=== PATIENT | female | born 1965 | race Caucasian/White ===

== ENCOUNTER → 2016-11-25 | Outpatient (CLI) | payer OTHER ==
[~2016-11-25] MED LIST: ALBINS/ INH; AMOX875T PO; AMOX875T3 PO; ATV/1 PO; AZITTAB PO; BECL0.3A INH; BUDE1SUS INH; BUPRTAB51 PO; DILT120T8 PO; EFF75 PO; ERGO500037 PO; ESCI1TAB10 PO; FEXO1TAB49 PO; GFNSR600 PO; GUAI1TAB55 PO; IPRA1AER2 INH; IPRASOL4 INH; LEVO112T2 PO; MAGN250T3 PO; METH1TAB81 PO; OMAL150S SQ; PLMINS NEB; QVRINH80 INH; RABE20TA5 PO; SALM50AE2 INH; SRVDIN60 INH; TRIA37.5 PO; VENL150C56 PO; ZTHM250 PO
--- NOTE | 2016-11-25 14:55 | DIAGNOSTIC IMAGING REPORT ---
MRI of the right knee no contrast CLINICAL HISTORY: Right knee pain x3 weeks COMPARISON STUDY: No previous studies for comparison. FINDINGS: Imaging was performed in the sagittal, axial, and coronal planes. The quadriceps and patellar tendons appear intact. The anterior posterior cruciate ligaments appear intact. There are no areas of marrow edema to indicate occult fracture or bone bruise. The medial and lateral collateral ligaments appear intact. The patellar retinacular structures appear intact. There are degenerative signal changes present within the medial meniscus. No discrete tears are visualized. IMPRESSION: No evidence of internal derangement. Electronically signed by: Jg Potter M.D. 11/25/2016 2:53 PM Dictated Date/Time: 11/25/2016 2:50 PM
== END | disposition home or self-care (01) ==
LOC: C.MRI 14:06
PROVIDERS: ATTEND Family Medicine
DX: M25.561 Pain in right knee (principal)

== ENCOUNTER 2017-01-20 14:39 | Emergency (ER) | payer OTHER ==
[~2017-01-20] VITALS: Ht 162.6 cm; Wt 98.6 kg
[~2017-01-20 14:39] MED LIST changes: -AMOX875T PO; -AZITTAB PO; -BUDE1SUS INH; -EFF75 PO; -GFNSR600 PO; -GUAI1TAB55 PO; -IPRASOL4 INH; -METH1TAB81 PO; -PLMINS NEB; -QVRINH80 INH; -SRVDIN60 INH; -VENL150C56 PO; -ZTHM250 PO
[2017-01-20 14:45] VITALS: TEMP 36.9; Ht 162.6 cm; Wt 98.6 kg
[2017-01-20] MEDS ORDERED: ALBUTEROL 0.083% NEBU SOLN 3 ML VIAL INH STA (15:16)
[2017-01-20] MEDS ORDERED: KETOROLAC TROMETHAMINE 30 MG/ML VIAL IV STA (15:16)
--- NOTE | 2017-01-20 15:19 | EMERGENCY ROOM VISIT NOTE ---
History Report prepared by Sandi: Alanna Hernandez Under the Supervision of: Dr. Jose Camacho M.D. First contact with patient: 15:06 Chief Complaint: CARDIAC ASSESSMENT Stated Complaint: CHEST DISCOMFORT Nursing Triage Summary: pt reports awoke from sleep this AM with discomfort in mid chest with intermittent radiation to back , pt reports cough with no mucus production X 2 days, denies SALEEM , or [place] History of Present Illness The patient is a 51 year old female who presents to the Emergency Room with complaints of intermittent chest discomfort that started around 0440 this morning. The patient woke up with a sharp chest pain. She rates her pain an 8/ 10 at that time. After about 30 seconds, this turned into a dull pain that lasted for about 5 hours. This pain worsened with hitting bumps in the road on her way to work this morning. The sharp pain came back around 1230 this afternoon. It again turned into a dull pain. She rates her pain a 3-4/10 at this time. The pain does not worsen with deep breaths. Associated symptoms include a persistent cough for the past 2 days. The patient denies headache, nausea, vomiting, abdominal pain, fevers, shortness of breath, and pain or swelling in the legs. Past medical history is negative for blood clots. Source of History: patient, family Onset: 0440 this morning Position: chest Symptom Intensity: 8/10 this morning, 3-4/10 at this time Timing: intermittent Modifying Factors (Worsening): other (Hitting bumps in the road ) Associated Symptoms: + cough, No SOB, No abdominal pain, No fevers, No headache, No nausea, No vomiting Review of Systems See HPI for pertinent positives & negatives. A total of 10 systems reviewed and were otherwise negative. Past Medical & Surgical Medical Problems: (1) Asthma (2) GERD (gastroesophageal reflux disease) (3) Hypothyroid (4) Pneumonia (5) Pneumonia Surgical Problems: (1) History of cholecystectomy Old medical records were reviewed. Nurse's notes were reviewed and I agree with. Family History FH: heart disease Social History Smoking Status: Never Smoker Drug Use: none Marital Status: Housing Status: lives with family Occupation Status: employed Current/Historical Medications Scheduled Beclomethasone Dip (Qvar), 2 PUFFS INH BID Bupropion (Wellbutrin-Xl), 300 MG PO QAM Diltiazem Hcl (Cardizem), 1 TAB PO QAM Ergocalciferol (Vitamin D 47131 Unit), 50,000 UNIT PO WK Fexofenadine Hcl (Beti Allergy), 1 TAB PO QAM Levothyroxine Sodium (Synthroid), 112 MCG PO QAM Magnesium (Magnesium 250 mg), 1 TAB PO QAM Omalizumab (Xolair), 1.8 ML SC [id number] Rabeprazole Sodium (Aciphex), 20 MG PO BID Triamterene/Hctz (Dyazide 37.5MG/25MG), 0.5 TAB PO QAM Venlafaxine Hcl (Effexor), 75 MG PO DAILY Scheduled PRN Amoxicillin (Amoxil), 875 MG PO BID PRN for ASTHMA RESCUE KIT Ipratropium-Albuterol (Combivent Respimat), 1 PUFFS INH Q4H PRN for SOB/Wheezing Lorazepam (Ativan), 1 MG PO TID PRN for Anxiety Miscellaneous Medications Salmeterol Xinafoate (Serevent Diskus) Allergies Coded Allergies: Quinolones (Unverified Allergy, Mild, RASH, 01/20/17) Buspirone (Verified Allergy, Unknown, ASTHMA, 01/20/17) Fluticasone (Verified Allergy, Unknown, FUNGAL INFECTION, 01/20/17) Prednisone (Verified Adverse Reaction, Unknown, SEVERE DEPRESSION, 01/20/17) Physical Exam Vital Signs Date Time Temp Pulse Resp B/P Pulse Ox O2 Delivery O2 Flow Rate FiO2 01/20/17 16:29 87 18 130/89 98 Room Air 01/20/17 14:45 36.9 99 20 151/97 99 Room Air Physical Exam General: Non ill appearing middle aged female in no acute distress. HEENT: Normal cephalic atraumatic. Pupils are equal round and reactive to light. Extraocular movements are intact. Oropharynx is pink with moist mucous membranes. No swelling of the mouth lips or tongue. Neck: Supple with a midline trachea. No meningeal signs or stiffness, no JVD or bruits. No Stridor. Chest: Mild tenderness to palpation of right sternal border. Clear to auscultation bilaterally. No wheezes or rhonchi. No increased work of breathing. Heart: regular rate and rhythm. Abdomen: Soft nontender, nondistended without rebound guarding or rigidity. Extremities: No cyanosis clubbing or edema. No calf tenderness or assymetry Spine/Back. Non tender to palpation. No CVA tenderness Skin: Good turgor without rashes. Neurologic exam: Cranial nerves two through 12 are intact. Motor and sensation are intact and symmetrical throughout. Medical Decision & Procedures ER Provider Diagnostic Interpretation: X-ray results as stated below per interpretation by me and the radiologist: SINGLE VIEW CHEST CLINICAL HISTORY: Atypical chest pain. FINDINGS: An AP, portable, upright chest radiograph is compared to study dated 04/06/2015. The cardiomediastinal silhouette is unremarkable. The lungs and pleural spaces are clear. No pneumothorax is seen. The skeletal structures appear osteopenic. The bony thorax is grossly intact. IMPRESSION: No acute cardiopulmonary abnormality. Electronically signed by: Boy Roldan M.D. 01/20/2017 4:06 PM Dictated Date/Time: 01/20/2017 4:05 PM Laboratory Results 01/20/17 15:15 Red Blood Count 4.44, Mean Corpuscular Volume 91.4, Mean Corpuscular Hemoglobin 31.5, Mean Corpuscular Hemoglobin Concent 34.5, Mean Platelet Volume 11.3, Neutrophils (%) (Auto) 71.1, Lymphocytes (%) (Auto) 16.6, Monocytes (%) (Auto) 8.0, Eosinophils (%) (Auto) 3.6, Basophils (%) (Auto) 0.5, Neutrophils # (Auto) 4.51, Lymphocytes # (Auto) 1.05, Monocytes # (Auto) 0.51, Eosinophils # (Auto) 0.23, Basophils # (Auto) 0.03 01/20/17 15:15 Test 01/20/17 15:15 01/20/17 15:24 White Blood Count 6.34 K/uL (4.8-10.8) Red Blood Count 4.44 M/uL (4.2-5.4) Hemoglobin 14.0 g/dL (12.0-16.0) Hematocrit 40.6 % (37-47) Mean Corpuscular Volume 91.4 fL (80-100) Mean Corpuscular Hemoglobin 31.5 pg (25-34) Mean Corpuscular Hemoglobin Concent 34.5 g/dl (32-36) Platelet Count 224 K/uL (130-400) Mean Platelet Volume 11.3 fL (7.4-10.4) Neutrophils (%) (Auto) 71.1 % Lymphocytes (%) (Auto) 16.6 % Monocytes (%) (Auto) 8.0 % Eosinophils (%) (Auto) 3.6 % Basophils (%) (Auto) 0.5 % Neutrophils # (Auto) 4.51 K/uL (1.4-6.5) Lymphocytes # (Auto) 1.05 K/uL (1.2-3.4) Monocytes # (Auto) 0.51 K/uL (0.11-0.59) Eosinophils # (Auto) 0.23 K/uL (0-0.5) Basophils # (Auto) 0.03 K/uL (0-0.2) RDW Standard Deviation 44.9 fL (36.4-46.3) RDW Coefficient of Variation 13.6 % (11.5-14.5) Immature Granulocyte % (Auto) 0.2 % Immature Granulocyte # (Auto) 0.01 K/uL (0.00-0.02) Anion Gap 10.0 mmol/L (3-11) Est Creatinine Clear Calc Drug Dose 76.5 ml/min Estimated GFR () 77.3 Estimated GFR (Non- 66.7 BUN/Creatinine Ratio 11.4 (10-20) Calcium Level 8.8 mg/dl (8.5-10.1) Total Bilirubin 0.3 mg/dl (0.2-1) Direct Bilirubin < 0.1 mg/dl (0-0.2) Aspartate Amino Transf (AST/SGOT) 55 U/L (15-37) Alanine Aminotransferase (ALT/SGPT) 71 U/L (12-78) Alkaline Phosphatase 88 U/L (45-117) Total Creatine Kinase 62 U/L (26-192) Creatine Kinase MB 0.7 ng/ml (0.5-3.6) Creatine Kinase MB Ratio 1.1 (0-3.0) Total Protein 7.8 gm/dl (6.4-8.2) Albumin 4.3 gm/dl (3.4-5.0) Lipase 129 U/L (73-393) Bedside D-Dimer 402 ng/mlFEU (0-450) Bedside Troponin I 0.000 ng/ml (0-0.045) Laboratory studies as stated above per my review. Medications Administered Medications (Trade) Dose Ordered Sig/Alba Route Start Time Stop Time Status Last Admin Dose Admin Ketorolac Tromethamine (Toradol Inj) 30 mg NOW STAT IV 01/20/17 15:16 01/20/17 15:18 DC 01/20/17 15:36 30 MG Albuterol Sulfate (Ventolin 0.083% 2.5MG/3ML Neb) 2.5 mg NOW STAT INH 01/20/17 15:16 01/20/17 15:18 DC 01/20/17 15:36 2.5 MG Lorazepam (Ativan Tab) 1 mg NOW STAT SL 01/20/17 16:15 01/20/17 16:16 DC 01/20/17 16:26 1 MG ECG Indication: chest pain Rate (beats per minute): 92 Rhythm: normal sinus Findings: no acute ischemic change, no ectopy Comparison ECG Date: April 06, 2015 Change: no significant change ED Course 1507: Past medical records reviewed. The patient was evaluated in room B7, and a complete history and physical examination were performed. 1516: Ordered Albuterol Sulfate 2.5 mg INH, Toradol Injection 30 mg IV, Ativan Tablet 1 mg SL. 1625: Upon reevaluation, the patient is feeling better. I discussed the results and treatment plan with the patient and her daughter. They verbalized agreement of the treatment plan. The patient was discharged home. Medical Decision Differentials include, but are not limited to; Acute coronary syndrome, arrhythmia, musculoskeletal, pulmonary embolism, pneumothorax. This patient comes in as described above. She complains of chest pain. It is vague and atypical is reproducible. She also has history asthma and has had some anxiety as well. She was given albuterol neb and felt better. She also requested Ativan which she typically takes and was feeling comfortable with this. EKG does not suggest acute ischemic changes or ectopy. She has nothing to suggest congestive heart failure, pneumonia ,or pneumothorax. She has nothing to suggest infection or sepsis. She should continue her inhaler. She' s not done well with steroids in the past so I will not start her on this. She continues her Ativan. I think this may be a combination of asthma anxiety and musculoskeletal and at this point is nothing to suggest acute cardiac event. She strongly desires to go home her biomarkers are negative despite having hours of pain in the pain starting multiple hours ago. I told her father regular doctor return ER if: increasing pain, worsening of symptoms, fever or chills, any new problems concerns. She is happy with plan and discharged to home. Impression Primary Impression: Precordial chest pain Additional Impressions: Costochondritis Asthma exacerbation Anxiety Scribe Attestation The scribe's documentation has been prepared under my direction and personally reviewed by me in its entirety. I confirm that the note above accurately reflects all work, treatment, procedures, and medical decision making performed by me. Departure Information Dispostion Home / Self-Care Referrals Anuradha Pierre MD (PCP) Forms IMPORTANT VISIT INFORMATION Patient Instructions [facility] Additional Instructions Rest. Drink plenty of fluids. Return if: Recurrence of symptoms, worsening of symptoms, shortness of breath, any new problems or concerns. Follow-up with your doctor Monday for recheck. Use your albuterol inhaler as directed May use [id number] ibuprofen every 6 hours if needed for aches or pains Problem Qualifiers
[2017-01-20 15:33] LABS: BASO % 0.5 %; BASO ABS # 0.03 K/uL (0-0.2); COMPLETE YES; EOS % 3.6 %; HEMATOCRIT 40.6 % (37-47); IG% 0.2 %; LYMPH % 16.6 %; LYMPH ABS # 1.05 K/uL (1.2-3.4); MEAN CELL VOLUME 91.4 fL (80-100); MEAN CORPUSCULAR HEMOGLOBIN 31.5 pg (25-34); MEAN CORPUSCULAR HGB CONC 34.5 g/dl (32-36); MEAN PLATELET VOLUME 11.3 fL (7.4-10.4); NEUT % 71.1 %; PLATELET COUNT 224 K/uL (130-400); RED BLOOD COUNT 4.44 M/uL (4.2-5.4); WHITE BLOOD COUNT 6.34 K/uL (4.8-10.8)
[2017-01-20] MEDS ORDERED: EFF75 PO (15:43)
[2017-01-20] MEDS ORDERED: QVRINH80 INH (15:43)
[2017-01-20] MEDS ORDERED: SRVDIN60 INH (15:43)
[2017-01-20 15:58] LABS: ALT/SGPT 71 U/L (12-78); AST/SGOT 55 U/L (15-37); BLOOD UREA NITROGEN 11 mg/dl (7-18); BUN/CREATININE RATIO 11.4 (10-20); CALCIUM 8.8 mg/dl (8.5-10.1); CARBON DIOXIDE 29 mmol/L (21-32); CHLORIDE 101 mmol/L (98-107); CREATININE 0.97 mg/dl (0.60-1.20); GLUCOSE 125 mg/dl (70-99); POTASSIUM 3.4 mmol/L (3.5-5.1); SODIUM 140 mmol/L (136-145)
[2017-01-20 16:03] LABS: ALKALINE PHOSPHATASE 88 U/L (45-117); CKMB/CK RATIO 1.1 (0-3.0)
--- NOTE | 2017-01-20 16:07 | DIAGNOSTIC IMAGING REPORT ---
SINGLE VIEW CHEST CLINICAL HISTORY: Atypical chest pain. FINDINGS: An AP, portable, upright chest radiograph is compared to study dated 04/06/2015. The cardiomediastinal silhouette is unremarkable. The lungs and pleural spaces are clear. No pneumothorax is seen. The skeletal structures appear osteopenic. The bony thorax is grossly intact. IMPRESSION: No acute cardiopulmonary abnormality. Electronically signed by: Boy Roldan M.D. 01/20/2017 4:06 PM Dictated Date/Time: 01/20/2017 4:05 PM
[2017-01-20] MEDS ORDERED: LORAZEPAM 1 MG TAB SL STA (16:15)
[2017-01-20 16:29] VITALS: BP 130/89; PULSE 87; O2SAT 98
[2017-01-30] MEDS ORDERED: ZTHM250 PO (09:59)
[2017-01-30] MEDS ORDERED: AMOX875T PO (09:59)
[2017-01-30] MEDS ORDERED: QVRINH80 INH (09:59)
[2017-01-30] MEDS ORDERED: GFNSR600 PO (09:59)
[2017-01-30] MEDS ORDERED: PLMINS NEB (09:59)
== END 2017-01-20 16:48 | disposition home or self-care (01) ==
LOC: C.EDB 14:40
DX: M94.0 Chondrocostal junction syndrome [Tietze] (principal); J44.1 Chronic obstructive pulmonary disease with (acute) exacerbation; F41.9 Anxiety disorder, unspecified; K21.9 Gastro-esophageal reflux disease without esophagitis; E03.9 Hypothyroidism, unspecified; Z87.01 Personal history of pneumonia (recurrent); Z90.49 Acquired absence of other specified parts of digestive tract; Z79.899 Other long term (current) drug therapy

== ENCOUNTER 2017-01-27 12:43 | Observation (INO) | payer OTHER ==
[~2017-01-27] VITALS: Ht 162.6 cm; Wt 96.9 kg
[~2017-01-27 12:43] MED LIST changes: -ALBINS/ INH; -BECL0.3A INH; +EFF75 PO; -ESCI1TAB10 PO; +QVRINH80 INH; -SALM50AE2 INH; +SRVDIN60 INH
[2017-01-27] MEDS ORDERED: METH1TAB81 PO (12:56)
[2017-01-27] MEDS ORDERED: IPRASOL4 INH (12:57)
[2017-01-27] MEDS ORDERED: CEFTRIAXONE SOD INJ 1 GM ADDVIAL IV STA (13:09)
[2017-01-27] MEDS ORDERED: AZITHROMYCIN IV 500 MG in DEXTROSE 5% 250ML 250 ML IV STA (13:09)
[2017-01-27] MEDS ORDERED: SODIUM CHLORIDE 0.9% 1000ML 1,000 ML IV STA (13:09)
[2017-01-27] MEDS ORDERED: METHYLPREDNISOLONE 125 MG VIAL IV STA (13:09)
[2017-01-27] MEDS ORDERED: MAGNESIUM SULFATE 1GM / D5W 1 GM BAG IV STA (13:09)
--- NOTE | 2017-01-27 13:10 | EMERGENCY ROOM VISIT NOTE ---
History Report prepared by Juanibgeoff: Cindy Salgado Under the Supervision of: Dr. Raz Lazaro M.D. First contact with patient: 13:00 Chief Complaint: RESPIRATORY PROBLEMS Stated Complaint: ASTHMA, URI, FATIGUE Nursing Triage Summary: Pt states seen here last week for difficulty breathing, cough, chest pain/congestion. Hx of asthma. Sx worsening now. Pt taking Augmentin, Medrol Dose Pack (2nd course). Pt states used neb without relief. History of Present Illness The patient is a 51 year old female who presents to the Emergency Room with complaints of worsening shortness of breath that began over a week ago. She also complains of a productive cough with green/yellow sputum and chest congestion. She has a history of asthma and notes that her current symptoms feel like her previous asthma flare ups, although slightly worse. She has been on 2 Medrol dose packs since 6 days ago when she was seen here in the ED and had a Solu-Medrol injection at her PCP's office 2 days ago. Despite the medication, she does not feel that her symptoms are improving significantly. Yesterday, she started a course of Augmentin. She used a breathing treatment about an hour ago. Denies chest pain, abdominal pain, chance of , or other complaints. She has been hospitalized in the past for asthma flare ups when she was younger. Source of History: patient Onset: over a week ago Position: other (global) Quality: other (shortness of breath) Timing: worsening Associated Symptoms: + cough (productive), No abdominal pain, No chest pain Note: Other symptoms: chest congestion Review of Systems See HPI for pertinent positives & negatives. A total of 10 systems reviewed and were otherwise negative. Past Medical & Surgical Medical Problems: (1) Asthma (2) GERD (gastroesophageal reflux disease) (3) Hypothyroid (4) Pneumonia (5) Pneumonia (6) Status asthmaticus Surgical Problems: (1) History of cholecystectomy Family History FH: heart disease Social History Smoking Status: Never Smoker Drug Use: none Marital Status: Housing Status: lives with family Occupation Status: employed Current/Historical Medications Scheduled Beclomethasone Dip (Qvar), 2 PUFFS INH BID Bupropion (Wellbutrin-Xl), 300 MG PO QAM Diltiazem Hcl (Cardizem), 1 TAB PO QAM Ergocalciferol (Vitamin D 99306 Unit), 50,000 UNIT PO WK Fexofenadine Hcl (Beti Allergy), 1 TAB PO QAM Ipratropium-Albuterol (Duoneb), 1 TREATMENT INH Q4H Levothyroxine Sodium (Synthroid), 112 MCG PO QAM Magnesium (Magnesium 250 mg), 1 TAB PO QAM Methylprednisolone (Medrol), 4 MG PO UD Omalizumab (Xolair), 1.8 ML SC [id number] Rabeprazole Sodium (Aciphex), 20 MG PO BID Salmeterol Xinafoate (Serevent Diskus), 1 PUFF INH BID Triamterene/Hctz (Dyazide 37.5MG/25MG), 0.5 TAB PO QAM Venlafaxine Hcl (Effexor), 75 MG PO DAILY Scheduled PRN Amoxicillin (Amoxil), 875 MG PO BID PRN for ASTHMA RESCUE KIT Ipratropium-Albuterol (Combivent Respimat), 1 PUFFS INH Q4H PRN for SOB/Wheezing Lorazepam (Ativan), 1 MG PO TID PRN for Anxiety Allergies Coded Allergies: Quinolones (Unverified Allergy, Mild, RASH, 01/20/17) Buspirone (Verified Allergy, Unknown, ASTHMA, 01/20/17) Fluticasone (Verified Allergy, Unknown, FUNGAL INFECTION, 01/20/17) Prednisone (Verified Adverse Reaction, Unknown, SEVERE DEPRESSION, 01/20/17) Physical Exam Vital Signs Date Time Temp Pulse Resp B/P Pulse Ox O2 Delivery O2 Flow Rate FiO2 01/27/17 16:06 100 26 152/79 92 01/27/17 14:43 98 14 155/87 100 Nebulizer 01/27/17 14:08 89 19 152/91 98 Nebulizer 7.0 01/27/17 13:52 90 18 93 Room Air 01/27/17 13:38 82 01/27/17 13:24 90 Room Air 01/27/17 13:24 90 Room Air 01/27/17 12:45 37.3 126 22 133/78 90 Room Air Physical Exam GENERAL: Patient is a healthy-appearing well-nourished 51 year old female HEAD: Normocephalic atraumatic EYES: Ocular movements intact pupils equal and react to light OROPHARYNX mucous membranes are moist no exudates present no erythema or edema present NECK: Supple no nuchal rigidity CHEST: Good equal expansion LUNGS: Bilateral inspiratory and expiratory wheezing to auscultation CARDIAC: Normal S1 and S2 ABDOMEN: Soft nontender no guarding BACK: No CVA tenderness EXTREMITIES: No pain upon palpation normal muscle strength in all groups no clubbing cyanosis or edema NEURO: Patient is following commands is answering questions appropriately. Alert and oriented x3 Cranial Nerves 2-12 grossly intact Medical Decision & Procedures ER Provider Diagnostic Interpretation: Radiology results as stated below per my review and radiologist interpretation: CHEST ONE VIEW PORTABLE CLINICAL HISTORY: Shortness of breath, cough. COMPARISON STUDY: January 20, 2017 FINDINGS: The heart is at the upper limits of normal in size. There is no failure. There is no focal pulmonary consolidation. There are no pleural effusions.[ IMPRESSION: No active disease in the chest. Electronically signed by: Jg Potter M.D. 01/27/2017 1:33 PM Dictated Date/Time: 01/27/2017 1:[address] ANGIOGRAM OF THE CHEST CLINICAL HISTORY: Shortness of breath, asthma, fatigue. COMPARISON STUDY: Chest x-ray dated 01/27/2017 TECHNIQUE: Following the IV administration of 81 mL of Optiray-320, CT angiogram of the thorax was performed from the thoracic inlet to the lung bases utilizing the pulmonary embolus protocol. Images are reviewed in the axial, sagittal, and coronal planes. IV contrast was administered without complication. MIP imaging was performed. CT DOSE: 471.99 mGy.cm FINDINGS: No pathologically enlarged axillary mediastinal or hilar lymph nodes were visualized. There was no evidence of thoracic aortic dilatation. There were no pulmonary artery filling defects to indicate acute pulmonary embolism. No pleural effusions are visualized. There is a right lower lobe bronchial wall thickening and mucous plugging. IMPRESSION: 1. No CT evidence of acute pulmonary embolism 2. Right lower lobe bronchial wall thickening and mucous plugging Electronically signed by: Jg Potter M.D. 01/27/2017 3:10 PM Dictated Date/Time: 01/27/2017 3:06 PM Laboratory Results 01/27/17 13:29 Red Blood Count 4.45, Mean Corpuscular Volume 91.0, Mean Corpuscular Hemoglobin 31.2, Mean Corpuscular Hemoglobin Concent 34.3, Mean Platelet Volume 11.1, Neutrophils (%) (Auto) 83.3, Lymphocytes (%) (Auto) 7.7, Monocytes (%) (Auto) 8.3, Eosinophils (%) (Auto) 0.1, Basophils (%) (Auto) 0.1, Neutrophils # (Auto) 12.93, Lymphocytes # (Auto) 1.20, Monocytes # (Auto) 1.29, Eosinophils # (Auto) 0.01, Basophils # (Auto) 0.01 01/27/17 13:29 Test 01/27/17 13:29 01/27/17 13:30 01/27/17 13:34 01/27/17 13:35 White Blood Count 15.51 K/uL (4.8-10.8) Red Blood Count 4.45 M/uL (4.2-5.4) Hemoglobin 13.9 g/dL (12.0-16.0) Hematocrit 40.5 % (37-47) Mean Corpuscular Volume 91.0 fL (80-100) Mean Corpuscular Hemoglobin 31.2 pg (25-34) Mean Corpuscular Hemoglobin Concent 34.3 g/dl (32-36) Platelet Count 254 K/uL (130-400) Mean Platelet Volume 11.1 fL (7.4-10.4) Neutrophils (%) (Auto) 83.3 % Lymphocytes (%) (Auto) 7.7 % Monocytes (%) (Auto) 8.3 % Eosinophils (%) (Auto) 0.1 % Basophils (%) (Auto) 0.1 % Neutrophils # (Auto) 12.93 K/uL (1.4-6.5) Lymphocytes # (Auto) 1.20 K/uL (1.2-3.4) Monocytes # (Auto) 1.29 K/uL (0.11-0.59) Eosinophils # (Auto) 0.01 K/uL (0-0.5) Basophils # (Auto) 0.01 K/uL (0-0.2) RDW Standard Deviation 45.7 fL (36.4-46.3) RDW Coefficient of Variation 13.8 % (11.5-14.5) Immature Granulocyte % (Auto) 0.5 % Immature Granulocyte # (Auto) 0.07 K/uL (0.00-0.02) Prothrombin Time 10.4 SECONDS (9.0-12.0) Prothromb Time International Ratio 1.0 (0.9-1.1) Activated Partial Thromboplast Time 25.8 SECONDS (21.0-31.0) Partial Thromboplastin Ratio 1.0 Urine Color YELLOW Urine Appearance CLEAR (CLEAR) Urine pH 7.0 (4.5-7.5) Urine Specific [place] 1.013 (1.000-1.030) Urine Protein NEG (NEG) Urine Glucose (UA) NEG (NEG) Urine Ketones NEG (NEG) Urine Occult Blood NEG (NEG) Urine Nitrite NEG (NEG) Urine Bilirubin NEG (NEG) Urine Urobilinogen NEG (NEG) Urine Leukocyte Esterase NEG (NEG) Est Creatinine Clear Calc Drug Dose 87.5 ml/min Estimated GFR () 92.0 Estimated GFR (Non- 79.3 BUN/Creatinine Ratio 22.8 (10-20) Calcium Level 8.7 mg/dl (8.5-10.1) Total Bilirubin 0.2 mg/dl (0.2-1) Aspartate Amino Transf (AST/SGOT) 15 U/L (15-37) Alanine Aminotransferase (ALT/SGPT) 35 U/L (12-78) Alkaline Phosphatase 79 U/L (45-117) Total Creatine Kinase 49 U/L (26-192) Creatine Kinase MB < 0.5 ng/ml (0.5-3.6) Creatine Kinase MB Ratio (0-3.0) Troponin I < 0.015 ng/ml (0-0.045) Total Protein 7.3 gm/dl (6.4-8.2) Albumin 3.6 gm/dl (3.4-5.0) Globulin 3.7 gm/dl (2.5-4.0) Albumin/Globulin Ratio 1.0 (0.9-2) Bedside Hemoglobin 13.3 g/dl (12.0-16.0) Bedside Hematocrit 39 % (37-47) Bedside Sodium 140 mEq/L (135-144) Bedside Potassium 3.4 mEq/L (3.3-5.0) Bedside Chloride 100 mEq/L (101-112) Bedside Total CO2 26 mEq/l (24-31) Anion Gap 18.0 mmol/L (16-25) Bedside Blood Urea Nitrogen 19 mg/dl (7-18) Bedside Creatinine 0.8 mg/dl (0.6-1.3) Bedside Glucose (other) 93 mg/dl (70-99) Bedside Ionized Calcium (Ramiro) 1.09 mmol/l (1.12-1.32) Bedside D-Dimer > 450 ng/mlFEU (0-450) Influenza Type A (RT-PCR) Neg for Influ A (NEG) Influenza Type A Antigen Neg for Influ A (NEG) Influenza Type B Antigen Neg for Influ B (NEG) Influenza Type B (RT-PCR) Neg for Influ B (NEG) Labs reviewed by ED physician. Medications Administered Medications (Trade) Dose Ordered Sig/Alba Route Start Time Stop Time Status Last Admin Dose Admin Methylprednisolone Sodium Succinate (Solu-Medrol IV) 125 mg NOW STAT IV 01/27/17 13:09 01/27/17 13:15 DC 01/27/17 13:31 125 MG Albuterol/ Ipratropium 12 ml 12 ml ONE ONCE INH 01/27/17 13:15 01/27/17 13:16 DC 01/27/17 13:15 12 ML Sodium Chloride (Nss 1000ml) 1,000 ml @ 999 mls/hr Q1H1M STAT IV 01/27/17 13:09 01/27/17 14:09 DC 01/27/17 13:31 999 MLS/HR Ceftriaxone Sodium 1 gm 1 gm NOW STAT IV 01/27/17 13:09 01/27/17 13:15 DC 01/27/17 13:33 1 GM Azithromycin/ Dextrose (Zithromax IV/D5 250ml) 255 ml @ 125 mls/hr ONE STAT IV 01/27/17 13:09 01/27/17 15:11 DC 01/27/17 14:07 125 MLS/HR Magnesium Sulfate (Magnesium Sulfate) 1 gm NOW STAT IV 01/27/17 13:09 01/27/17 13:15 DC 01/27/17 14:07 1 GM Lorazepam (Ativan Tab) 1 mg TID PRN PO 01/27/17 16:00 02/26/17 15:59 01/27/17 20:06 1 MG ECG Indication: SOB/dyspnea Rate (beats per minute): 103 Rhythm: sinus tachycardia Findings: no acute ischemic change, no ectopy ED Course 1303: Past medical records reviewed. The patient was evaluated in room A11. A complete history and physical examination was performed. 1309: Ordered Magnesium Sulfate 1 gm IV, Azithromycin 500 mg/Dextrose 255 ml @ 125 mls//hr IV, Rocephin Inj 1 gm IV Solu-Medrol 125 mg IV. 1315: Ordered DuoNeb 12 ml INH. 1320: Upon reexamination the patient is resting comfortably. I discussed results and treatment plan with the patient. She verbalizes agreement and understanding. 1528: I discussed the case with Dr. Spencer RICHARD Hospitalist. Medical Decision Differential diagnosis: Etiologies such as infections, reactive airway disease, pneumonia, pneumothorax , COPD, CHF, cardiac ischemia, pulmonary embolism, musculoskeletal, gastrointestinal, as well as others were entertained. This is a 51-year-old female who presents emergency department after failing to Medrol Dosepaks as well as Augmentin as an outpatient. The patient is only satting 90% on room air and is breathing very heavily. She does have an elevation in her d-dimer therefore she was sent for CAT scan of the chest. She was given an hour-long breathing treatment in the emergency department and again given Solu-Medrol. She does have an elevation in her white blood count however I believe this is from being on a prolonged course of steroids. The patient was also started on Rocephin as well as azithromycin. She was swabbed for the flu. I did discuss the case with the hospitalist service who agreed to admit the patient. Patient was in agreement with treatment plan. Consults Time Called: 1520 Consulting Physician: Dr. Spencer RICHARD Hospitalist Returned Call: 1528 I discussed the case with him. The patient will be evaluated for further management. Impression Primary Impression: Asthma exacerbation Scribe Attestation The scribe's documentation has been prepared under my direction and personally reviewed by me in its entirety. I confirm that the note above accurately reflects all work, treatment, procedures, and medical decision making performed by me. Departure Information Dispostion Being Evaluated By Hospitalist Referrals Anuradha Pierre MD (PCP) Patient Instructions My [facility]
[2017-01-27] MEDS ORDERED: ALBUT/IPRATROP 3MG/0.5MG NEB 3 ML VIAL INH ONE (13:15)
--- NOTE | 2017-01-27 13:34 | DIAGNOSTIC IMAGING REPORT ---
CHEST ONE VIEW PORTABLE CLINICAL HISTORY: Shortness of breath, cough. COMPARISON STUDY: January 20, 2017 FINDINGS: The heart is at the upper limits of normal in size. There is no failure. There is no focal pulmonary consolidation. There are no pleural effusions.[ IMPRESSION: No active disease in the chest. Electronically signed by: Jg Potter M.D. 01/27/2017 1:33 PM Dictated Date/Time: 01/27/2017 1:32 PM
[2017-01-27 13:44] LABS: BASO % 0.1 %; BASO ABS # 0.01 K/uL (0-0.2); COMPLETE YES; EOS % 0.1 %; HEMATOCRIT 40.5 % (37-47); IG% 0.5 %; LYMPH % 7.7 %; MEAN CORPUSCULAR HEMOGLOBIN 31.2 pg (25-34); MEAN CORPUSCULAR HGB CONC 34.3 g/dl (32-36); MEAN PLATELET VOLUME 11.1 fL (7.4-10.4); MONO % 8.3 %; NEUT % 83.3 %; PLATELET COUNT 254 K/uL (130-400); RED BLOOD COUNT 4.45 M/uL (4.2-5.4); WHITE BLOOD COUNT 15.51 K/uL (4.8-10.8)
[2017-01-27 13:48] LABS: ISTAT CREATININE 0.8 mg/dl (0.6-1.3); ISTAT HEMOGLOBIN 13.3 g/dl (12.0-16.0); ISTAT IONIZED CALCIUM 1.09 mmol/l (1.12-1.32)
[2017-01-27 13:52] VITALS: PULSE 90; O2SAT 93
[2017-01-27 14:02] LABS: ALT/SGPT 35 U/L (12-78); AST/SGOT 15 U/L (15-37); BLOOD UREA NITROGEN 19 mg/dl (7-18); BUN/CREATININE RATIO 22.8 (10-20); CALCIUM 8.7 mg/dl (8.5-10.1); CARBON DIOXIDE 27 mmol/L (21-32); CHLORIDE 104 mmol/L (98-107); CREATININE 0.84 mg/dl (0.60-1.20); GLUCOSE 86 mg/dl (70-99); POTASSIUM 3.5 mmol/L (3.5-5.1); SODIUM 141 mmol/L (136-145)
[2017-01-27 14:07] LABS: ALKALINE PHOSPHATASE 79 U/L (45-117)
--- NOTE | 2017-01-27 15:12 | DIAGNOSTIC IMAGING REPORT ---
CT ANGIOGRAM OF THE CHEST CLINICAL HISTORY: Shortness of breath, asthma, fatigue. COMPARISON STUDY: Chest x-ray dated 01/27/2017 TECHNIQUE: Following the IV administration of 81 mL of Optiray-320, CT angiogram of the thorax was performed from the thoracic inlet to the lung bases utilizing the pulmonary embolus protocol. Images are reviewed in the axial, sagittal, and coronal planes. IV contrast was administered without complication. MIP imaging was performed. CT DOSE: 471.99 mGy.cm FINDINGS: No pathologically enlarged axillary mediastinal or hilar lymph nodes were visualized. There was no evidence of thoracic aortic dilatation. There were no pulmonary artery filling defects to indicate acute pulmonary embolism. No pleural effusions are visualized. There is a right lower lobe bronchial wall thickening and mucous plugging. IMPRESSION: 1. No CT evidence of acute pulmonary embolism 2. Right lower lobe bronchial wall thickening and mucous plugging Electronically signed by: Jg Potter M.D. 01/27/2017 3:10 PM Dictated Date/Time: 01/27/2017 3:06 PM
[2017-01-27 15:50] LABS: URINE APPEARANCE CLEAR (CLEAR); URINE BILIRUBIN NEG (NEG); URINE COLOR YELLOW; URINE NITRITE NEG (NEG); URINE SPECIFIC GRAVITY 1.013 (1.000-1.030); UROBILINOGEN NEG (NEG)
[2017-01-27] MEDS ORDERED: ALBUTEROL 0.083% NEBU SOLN 3 ML VIAL INH PRN (16:00)
[2017-01-27] MEDS ORDERED: METHYLPREDNISOLONE IV 60 MG in SYRINGE 0 ML IV SCH (16:00)
[2017-01-27] MEDS ORDERED: ALUMINUM/MAGNESIUM/SIMETH (MAALOX MAX) 30 ML UDC PO PRN (16:00)
[2017-01-27] MEDS ORDERED: ACETAMINOPHEN 325 MG TAB PO PRN (16:00)
[2017-01-27 16:05] LABS: MANUAL MICROSCOPIC REQUIRED? NO; REVIEW REQ? NO
[2017-01-27 16:25] VITALS: O2SAT 94; Ht 162.6 cm; Wt 96.9 kg
--- NOTE | 2017-01-27 16:52 | History and Physical ---
History & Physical Date & Time of Service: Jan 27, 2017 at 16:18 Chief Complaint: Asthma, Uri, Fatigue Primary Care Physician: Anuradha Pierre MD History of Present Illness Source: patient 51 y/o F Hx HTN, depression, severe persistent asthma. Pt has had a productive cough, SOB and wheezing for over 1 week. She was placed on Augmentin the previous day and has been using her inhalers as scheduled but has not appreciated any improvement in her symptoms. She denies significant chest pain or fevers. A CT was obtained in the ER revealing Mucus plugging and RLL bronchial thickening. Past Medical/Surgical History Medical Problems: (1) Asthma Status: Chronic (2) GERD (gastroesophageal reflux disease) Status: Chronic (3) Hypothyroid Status: Chronic (4) Pneumonia Status: Resolved (5) Pneumonia Status: Resolved Surgical Problems: (1) History of cholecystectomy Status: Resolved Family History FH: heart disease Social History Smoking Status: Never Smoker Drug Use: none Marital Status: Occupational Status: employed Allergies Coded Allergies: Quinolones (Unverified Allergy, Mild, RASH, 01/20/17) Buspirone (Verified Allergy, Unknown, ASTHMA, 01/20/17) Fluticasone (Verified Allergy, Unknown, FUNGAL INFECTION, 01/20/17) Prednisone (Verified Adverse Reaction, Unknown, SEVERE DEPRESSION, 01/20/17) Home Medications Scheduled Beclomethasone Dip (Qvar), 2 PUFFS INH BID Bupropion (Wellbutrin-Xl), 300 MG PO QAM Diltiazem Hcl (Cardizem), 1 TAB PO QAM Ergocalciferol (Vitamin D 95447 Unit), 50,000 UNIT PO WK Fexofenadine Hcl (Beti Allergy), 1 TAB PO QAM Ipratropium-Albuterol (Duoneb), 1 TREATMENT INH Q4H Levothyroxine Sodium (Synthroid), 112 MCG PO QAM Magnesium (Magnesium 250 mg), 1 TAB PO QAM Methylprednisolone (Medrol), 4 MG PO UD Omalizumab (Xolair), 1.8 ML SC [id number] Rabeprazole Sodium (Aciphex), 20 MG PO BID Salmeterol Xinafoate (Serevent Diskus), 1 PUFF INH BID Triamterene/Hctz (Dyazide 37.5MG/25MG), 0.5 TAB PO QAM Venlafaxine Hcl (Effexor), 75 MG PO DAILY Scheduled PRN Amoxicillin (Amoxil), 875 MG PO BID PRN for ASTHMA RESCUE KIT Ipratropium-Albuterol (Combivent Respimat), 1 PUFFS INH Q4H PRN for SOB/Wheezing Lorazepam (Ativan), 1 MG PO TID PRN for Anxiety Review of Systems Constitutional: No chills, No fever, No sweats Eyes: No eye pain, No worsening of vision ENT: No hearing loss, No nasal symptoms, No unusual epistaxis Respiratory: + cough, + dyspnea at rest, + dyspnea on exertion, + shortness of breath, + sputum, + wheezing Cardiovascular: No PND, No chest pain, No orthopnea Abdomen: No nausea, No pain, No vomiting Musculoskeletal: No joint pain, No muscle pain Genitourinary - Female: No dysuria, No urinary frequency, No urinary urgency Neurologic: No memory loss, No paralysis, No weakness Psychiatric: No depression symptoms Endocrine: No fatigue Hematologic / Lymphatic: No abnormal bleeding/bruising Integumentary: No rash Allergic / Immunologic: No environmental allergies Physical Exam Vital Signs Date Time Temp Pulse Resp B/P Pulse Ox O2 Delivery O2 Flow Rate FiO2 01/27/17 14:43 98 14 155/87 100 Nebulizer 01/27/17 14:08 89 19 152/91 98 Nebulizer 7.0 01/27/17 13:52 90 18 93 Room Air 01/27/17 13:38 82 01/27/17 13:24 90 Room Air 01/27/17 13:24 90 Room Air 01/27/17 12:45 37.3 126 22 133/78 90 Room Air General Appearance: WD/WN, no apparent distress Head: normocephalic, atraumatic Eyes: normal inspection, PERRL, EOMI ENT: normal ENT inspection, hearing grossly normal, TMs normal, pharynx normal Neck: supple, no JVD Respiratory/Chest: chest non-tender, no respiratory distress, + pertinent finding (Wheezing and crackles limited to the R lung) Cardiovascular: regular rate, rhythm, no edema, no gallop Abdomen/GI: normal bowel sounds, non tender, soft Back: normal inspection, no CVA tenderness, no muscle spasm Extremities/Musculoskelatal: normal inspection, no calf tenderness, normal capillary refill, no pedal edema, normal range of motion 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, no motor/sensory deficits, alert, normal mood/affect, normal reflexes, oriented x 3 Skin: normal color, warm/dry, no rash Diagnostics Laboratory Results Results Past 24 Hours Test 01/27/17 13:29 01/27/17 13:30 01/27/17 13:34 01/27/17 13:35 Range/Units White Blood Count 15.51 4.8-10.8 K/uL Red Blood Count 4.45 4.2-5.4 M/uL Hemoglobin 13.9 12.0-16.0 g/dL Hematocrit 40.5 37-47 % Mean Corpuscular Volume 91.0 80-100 fL Mean Corpuscular Hemoglobin 31.2 25-34 pg Mean Corpuscular Hemoglobin Concent 34.3 32-36 g/dl Platelet Count 254 130-400 K/uL Mean Platelet Volume 11.1 7.4-10.4 fL Neutrophils (%) (Auto) 83.3 % Lymphocytes (%) (Auto) 7.7 % Monocytes (%) (Auto) 8.3 % Eosinophils (%) (Auto) 0.1 % Basophils (%) (Auto) 0.1 % Neutrophils # (Auto) 12.93 1.4-6.5 K/uL Lymphocytes # (Auto) 1.20 1.2-3.4 K/uL Monocytes # (Auto) 1.29 0.11-0.59 K/uL Eosinophils # (Auto) 0.01 0-0.5 K/uL Basophils # (Auto) 0.01 0-0.2 K/uL RDW Standard Deviation 45.7 36.4-46.3 fL RDW Coefficient of Variation 13.8 11.5-14.5 % Immature Granulocyte % (Auto) 0.5 % Immature Granulocyte # (Auto) 0.07 0.00-0.02 K/uL Urine Color YELLOW Urine Appearance CLEAR CLEAR Urine pH 7.0 4.5-7.5 Urine Specific [place] 1.013 1.000-1.030 Urine Protein NEG NEG Urine Glucose (UA) NEG NEG Urine Ketones NEG NEG Urine Occult Blood NEG NEG Urine Nitrite NEG NEG Urine Bilirubin NEG NEG Urine Urobilinogen NEG NEG Urine Leukocyte Esterase NEG NEG Sodium Level 141 136-145 mmol/L Potassium Level 3.5 3.5-5.1 mmol/L Chloride Level 104 98-107 mmol/L Carbon Dioxide Level 27 21-32 mmol/L Anion Gap 10.0 18.0 16-25 mmol/L Blood Urea Nitrogen 19 7-18 mg/dl Creatinine 0.84 0.60-1.20 mg/dl Est Creatinine Clear Calc Drug Dose 87.5 ml/min Estimated GFR () 92.0 Estimated GFR (Non- 79.3 BUN/Creatinine Ratio 22.8 10-20 Random Glucose 86 70-99 mg/dl Calcium Level 8.7 8.5-10.1 mg/dl Total Bilirubin 0.2 0.2-1 mg/dl Aspartate Amino Transf (AST/SGOT) 15 15-37 U/L Alanine Aminotransferase (ALT/SGPT) 35 12-78 U/L Alkaline Phosphatase 79 45-117 U/L Total Creatine Kinase 49 26-192 U/L Creatine Kinase MB < 0.5 0.5-3.6 ng/ml Creatine Kinase MB Ratio 0-3.0 Troponin I < 0.015 0-0.045 ng/ml Total Protein 7.3 6.4-8.2 gm/dl Albumin 3.6 3.4-5.0 gm/dl Globulin 3.7 2.5-4.0 gm/dl Albumin/Globulin Ratio 1.0 0.9-2 Bedside Hemoglobin 13.3 12.0-16.0 g/dl Bedside Hematocrit 39 37-47 % Bedside Sodium 140 135-144 mEq/L Bedside Potassium 3.4 3.3-5.0 mEq/L Bedside Chloride 100 101-112 mEq/L Bedside Total CO2 26 24-31 mEq/l Bedside Blood Urea Nitrogen 19 7-18 mg/dl Bedside Creatinine 0.8 0.6-1.3 mg/dl Bedside Glucose (other) 93 70-99 mg/dl Bedside Ionized Calcium (Ramiro) 1.09 1.12-1.32 mmol/l Bedside D-Dimer > 450 0-450 ng/mlFEU Influenza Type A Antigen Neg for Influ A NEG Influenza Type B Antigen Neg for Influ B NEG Diagnostic Radiology CTA 1. No CT evidence of acute pulmonary embolism 2. Right lower lobe bronchial wall thickening and mucous plugging Impression Assessment and Plan 51 y/o F Hx HTN, depression, severe persistent asthma. Pt has had a productive cough, SOB and wheezing for over 1 week. She was placed on Augmentin the previous day and has been using her inhalers as scheduled but has not appreciated any improvement in her symptoms. She denies significant chest pain or fevers. A CT was obtained in the ER revealing Mucus plugging and RLL bronchial thickening. 1) Status asthmaticus - persistence is likely due to mucus plugging as L lung is clear on exam. We will contact Pulmonology as she may need a bronch. Placed on antibiotics, nebs, steroids. Level of Care Telemetry Resuscitation Status FULL RESUSCITATION VTE Prophylaxis VTE Risk Assessment Done? Y/N: Yes Risk Level: Moderate Given or contraindicated: Unfractionated heparin SQ, SCD's
[2017-01-27 17:11] LABS: INFLUENZA A PCR Neg for Influ A (NEG); INFLUENZA B PCR Neg for Influ B (NEG)
[2017-01-27] MEDS ORDERED: IV FLUIDS COMPLETED PRN (18:00)
[2017-01-27 18:20] VITALS: BP 144/87; PULSE 98; TEMP 37; O2SAT 96
[2017-01-27 18:37] LABS: PROTHROMBIN TIME (PATIENT) 10.4 SECONDS (9.0-12.0)
[2017-01-27] MEDS: METHYLPREDNISOLONE IV 60 MG in SYRINGE 0 ML IV SCH (20:06)
[2017-01-27] MEDS: LORAZEPAM 1 MG TAB PO PRN (20:06)
[2017-01-27] MEDS: D5NSS + 20MEQ KCL 1,000 ML IV SCH (20:07)
[2017-01-27 20:11] VITALS: PULSE 102; O2SAT 96
[2017-01-27] MEDS: ALBUT/IPRATROP 3MG/0.5MG NEB 3 ML VIAL INH SCH (20:11)
[2017-01-27] MEDS: PANTOprazole SOD 40 MG TAB PO SCH (20:32)
[2017-01-27] MEDS: BECLOMETHASONE DIP HFA 80 MCG 8.7G INH INH SCH (20:33)
[2017-01-27] MEDS: HEPARIN SOD 5000 UNIT/0.5 ML CARP SQ SCH (20:40)
[2017-01-27 23:35] VITALS: BP 132/78; PULSE 88; TEMP 37; O2SAT 95
[2017-01-28] VITALS (12 sets, daily range): BP systolic 121–131; BP diastolic 71–77; PULSE 70–100; TEMP 36.6–37; O2SAT 94–98
[2017-01-28] MEDS: ALBUT/IPRATROP 3MG/0.5MG NEB 3 ML VIAL INH SCH ×4 (01:56→19:25)
[2017-01-28] MEDS: D5NSS + 20MEQ KCL 1,000 ML IV SCH (02:46)
[2017-01-28] MEDS: METHYLPREDNISOLONE IV 60 MG in SYRINGE 0 ML IV SCH ×4 (02:46→20:24)
[2017-01-28] MEDS: LEVOTHYROXINE 112 MCG TAB PO SCH (06:29)
[2017-01-28] MEDS: HEPARIN SOD 5000 UNIT/0.5 ML CARP SQ SCH ×3 (06:31→21:41)
--- NOTE | 2017-01-28 07:55 | Progress Note ---
Subjective Date of Service: Jan 28, 2017. Subjective pt feels much better, still some shortness of breath but not as wheezy. Problem List Medical Problems: (1) Anxiety Status: Acute (2) Asthma exacerbation Status: Acute (3) Asthma exacerbation Status: Acute (4) Costochondritis Status: Acute (5) Precordial chest pain Status: Acute Review of Systems Constitutional: No chills, No fever, No weakness Respiratory: + dyspnea on exertion, + problem reported, + shortness of breath, + wheezing, No cough Cardiac: No chest pain, No edema Abdomen: No diarrhea, No nausea, No pain, No vomiting Musculoskeletal: No joint pain, No muscle pain Psychiatric: No anhedonism, No depression symptoms Objective Vital Signs Date Time Temp Pulse Resp B/P Pulse Ox O2 Delivery O2 Flow Rate FiO2 01/28/17 07:35 36.6 79 16 131/77 98 Nasal Cannula 2.0 01/28/17 07:19 76 16 98 Nasal Cannula 2.0 01/28/17 04:00 36.6 79 18 131/77 96 Nasal Cannula 2.0 01/28/17 04:00 Room Air 2.0 01/28/17 01:56 85 16 94 Nasal Cannula 2.0 01/28/17 00:00 Room Air 2.0 01/27/17 23:35 37.0 88 18 132/78 95 Nasal Cannula 2.0 01/27/17 20:11 102 16 96 Nasal Cannula 2.0 01/27/17 20:00 Room Air 2.0 01/27/17 18:20 37.0 98 22 144/87 96 Room Air 01/27/17 17:55 104 22 154/74 94 2.0 01/27/17 16:36 94 Nasal Cannula 2.0 01/27/17 16:25 94 Nasal Cannula 2.0 01/27/17 16:06 100 26 152/79 92 01/27/17 14:43 98 14 155/87 100 Nebulizer 01/27/17 14:08 89 19 152/91 98 Nebulizer 7.0 01/27/17 13:52 90 18 93 Room Air 01/27/17 13:38 82 01/27/17 13:24 90 Room Air 01/27/17 13:24 90 Room Air 01/27/17 12:45 37.3 126 22 133/78 90 Room Air Physical Exam General Appearance: WD/WN, + mild distress Neck: supple, no JVD Respiratory/Chest: chest non-tender, + decreased breath sounds, + accessory muscle use, + rhonchi, + wheezing Cardiovascular: regular rate, rhythm, no murmur Abdomen: normal bowel sounds, non tender, soft Extremities: no pedal edema, no calf tenderness Laboratory Results Last 24 Hours Test 01/27/17 13:29 01/27/17 13:30 01/27/17 13:34 01/27/17 13:35 White Blood Count 15.51 K/uL Red Blood Count 4.45 M/uL Hemoglobin 13.9 g/dL Hematocrit 40.5 % Mean Corpuscular Volume 91.0 fL Mean Corpuscular Hemoglobin 31.2 pg Mean Corpuscular Hemoglobin Concent 34.3 g/dl Platelet Count 254 K/uL Mean Platelet Volume 11.1 fL Neutrophils (%) (Auto) 83.3 % Lymphocytes (%) (Auto) 7.7 % Monocytes (%) (Auto) 8.3 % Eosinophils (%) (Auto) 0.1 % Basophils (%) (Auto) 0.1 % Neutrophils # (Auto) 12.93 K/uL Lymphocytes # (Auto) 1.20 K/uL Monocytes # (Auto) 1.29 K/uL Eosinophils # (Auto) 0.01 K/uL Basophils # (Auto) 0.01 K/uL RDW Standard Deviation 45.7 fL RDW Coefficient of Variation 13.8 % Immature Granulocyte % (Auto) 0.5 % Immature Granulocyte # (Auto) 0.07 K/uL Prothrombin Time 10.4 SECONDS Prothromb Time International Ratio 1.0 Activated Partial Thromboplast Time 25.8 SECONDS Partial Thromboplastin Ratio 1.0 Urine Color YELLOW Urine Appearance CLEAR Urine pH 7.0 Urine Specific [place] 1.013 Urine Protein NEG Urine Glucose (UA) NEG Urine Ketones NEG Urine Occult Blood NEG Urine Nitrite NEG Urine Bilirubin NEG Urine Urobilinogen NEG Urine Leukocyte Esterase NEG Sodium Level 141 mmol/L Potassium Level 3.5 mmol/L Chloride Level 104 mmol/L Carbon Dioxide Level 27 mmol/L Anion Gap 10.0 mmol/L 18.0 mmol/L Blood Urea Nitrogen 19 mg/dl Creatinine 0.84 mg/dl Est Creatinine Clear Calc Drug Dose 87.5 ml/min Estimated GFR () 92.0 Estimated GFR (Non- 79.3 BUN/Creatinine Ratio 22.8 Random Glucose 86 mg/dl Calcium Level 8.7 mg/dl Total Bilirubin 0.2 mg/dl Aspartate Amino Transf (AST/SGOT) 15 U/L Alanine Aminotransferase (ALT/SGPT) 35 U/L Alkaline Phosphatase 79 U/L Total Creatine Kinase 49 U/L Creatine Kinase MB < 0.5 ng/ml Creatine Kinase MB Ratio Troponin I < 0.015 ng/ml Total Protein 7.3 gm/dl Albumin 3.6 gm/dl Globulin 3.7 gm/dl Albumin/Globulin Ratio 1.0 Bedside Hemoglobin 13.3 g/dl Bedside Hematocrit 39 % Bedside Sodium 140 mEq/L Bedside Potassium 3.4 mEq/L Bedside Chloride 100 mEq/L Bedside Total CO2 26 mEq/l Bedside Blood Urea Nitrogen 19 mg/dl Bedside Creatinine 0.8 mg/dl Bedside Glucose (other) 93 mg/dl Bedside Ionized Calcium (Ramiro) 1.09 mmol/l Bedside D-Dimer > 450 ng/mlFEU Influenza Type A (RT-PCR) Neg for Influ A Influenza Type A Antigen Neg for Influ A Influenza Type B Antigen Neg for Influ B Influenza Type B (RT-PCR) Neg for Influ B Assessment and Plan 51 y/o F Hx HTN, depression, severe persistent asthma with RLL pneumonia Status asthmaticus -iv steroids, nebulizers, has greatly improved but still not great air movement, continue current treatment RLL pneumonia, ceftriaxone and aithromycin depression continue welbutrin heparin sc
[2017-01-28] MEDS: TRIAMTERENE/HCTZ 37.5/25MG CAP PO SCH ×2 (08:13→09:00)
[2017-01-28] MEDS: MAGNESIUM OXIDE 400 MG TAB PO SCH (08:13)
[2017-01-28] MEDS: FEXOFENADINE HCL 180 MG TAB PO SCH (08:13)
[2017-01-28] MEDS: VENLAFAXINE HCL XR 75 MG CAPXR PO SCH (08:13)
[2017-01-28] MEDS: DILTIAZEM HCL 120 MG CAPCR PO SCH (08:13)
[2017-01-28] MEDS: BuPROPion XL 300 MG TABCR PO SCH (08:14)
[2017-01-28] MEDS: BECLOMETHASONE DIP HFA 80 MCG 8.7G INH INH SCH ×2 (08:14→20:10)
[2017-01-28] MEDS: PANTOprazole SOD 40 MG TAB PO SCH ×2 (08:14→20:10)
--- NOTE | 2017-01-28 09:01 | PULMONARY CONSULTATION ---
DATE OF CONSULTATION: 01/28/2017 DATE OF CONSULTATION: 01/28/2017. TIME: 7:50 a.m. REPORT OF CONSULTATION: The patient was seen in room 235 bed 1. She is a 51-year-old female who presented to the Emergency Room yesterday with cough and shortness of breath. She has a history of asthma since age 1. Her asthma is defined as severe persistent asthma. Her symptoms changed approximately 10 days ago. Her cough increased. It has been generally dry however. She has been more short of breath than normal. She has been requiring increased nebulizer treatments at home. She had gone to the Emergency Room on 01/20/2017 complaining of chest pain. She was evaluated and was felt to not have an acute cardiac problem. She had a dry hacking cough at that time. She was given a course of Medrol. When she did not improve she was given an additional course of Medrol and she was started on Augmentin. She only had 2 days of the Augmentin. Her symptoms worsened. She was more short of breath. She has not had any chills, fevers or sweats other than the sweat she gets periodically with menopause. She did not have a recurrence of the chest pain. She has not noticed any heartburn or indigestion. She has had mild postnasal drip. The patient has had allergy testing in the past. ALLERGIES: SHE HAS NUMEROUS ALLERGIES INCLUDING TREES, GRASS, POLLEN, MOLD, AND DUST. She took allergy injections for many years but they did not seem to help very much. Medication villalpando, she has been on Xolair injections for about 2 years. She takes Serevent at home as well as QVAR, DuoNebs and Combivent Respimat. She previously took a Flovent inhaler but was having problems with oral candidiasis and esophageal candidiasis. She has not had that problem with QVAR. She has a history of developing depression when she would be on prednisone relatively short times. She has some history of depression but would definitely worsened with prednisone. She has not noticed this thus far with the Medrol. Her only other pulmonary problem is she had pneumonia 2 or 3 years ago. This was treated as an outpatient. PAST SURGICAL HISTORY: 1. Bilateral inguinal hernias as a child. 1. x2. 2. Sinus surgery. 3. Endometrial ablation. 4. Cholecystectomy. 5. Right shoulder surgery for a biceps tear. PAST MEDICAL HISTORY: Includes hypertension, reflux, hypothyroidism, anxiety, and depression. FAMILY HISTORY: Father living, age 74, has hypertension, diabetes, coronary artery disease and asthma. Mother living, age 71, has mitral valve prolapse and hypothyroidism. Brother living, has asthma but refuses to seek medical attention. ALLERGIES: INCLUDE QUINOLONES, WHICH CAUSED A RASH, BUSPAR WHICH WORSENED HER ASTHMA, FLUTICASONE WHICH GAVE ESOPHAGEAL CANDIDIASIS AND PREDNISONE GIVING DEPRESSION NOTED. REVIEW OF SYSTEMS: In addition to the above-mentioned complaints, the patient has occasional dizziness. She complains of constipation. She has pains in her right elbow. She has a right heel spur. Otherwise, review of systems is negative except as noted above. Ten systems were reviewed. PHYSICAL EXAMINATION: GENERAL: The patient is a pleasant 51-year-old female who was cooperative, alert and oriented. She was in no distress. HEAD, EYES, EARS, NOSE, AND THROAT: Pupils were reactive to light and equal in size. Nares were clear. Mouth exam showed no erythema or exudate. NECK: Palpation of the neck reveals no lymph nodes or masses. CHEST: Normal expansion and development. VITAL SIGNS: Temperature was 36.6. There has been a high temperature of 37.3. The cardiac rate was 80 beats per minute. The rhythm was regular. LUNGS: Lung bird revealed coarse rales and rhonchi bilaterally, but greater on the right than the left. The breath sounds themselves were well heard bilaterally. The history given to me by the admission doctor was that her breath sounds on the right at that time were significantly decreased. The patient admits she is feeling much better. Blood pressure is 131/77. Oxygen saturation is 98% on 2 liters. The lowest pulse oximetry I had seen was 90%. The patient did cough when taking deep breaths. ABDOMEN: Soft. It is modestly obese. BMI is 36.7. Bowel sounds were normal. There was no tenderness to palpation, masses, or organomegaly. EXTREMITIES: Showed no cyanosis, clubbing or edema. The patient's chest x-ray showed no active disease. She had a CT angio of the chest. There was no evidence of pulmonary embolic disease. There was no adenopathy. In the right lower lung field was some mucus plugging and bronchial wall thickening. LABORATORY DATA: White count is 15.51. Differential was 83.3 neutrophils, 7.7 lymphs, 8.3 monos. Hemoglobin is 13.9 with hematocrit 40.5. Coags were normal. D-dimer was greater than 450. Urinalysis was normal. Electrolytes show sodium 140, potassium 3.4, chloride 100, bicarbonate 26. BUN was 19 with a creatinine of 0.8. Liver functions were normal. Total protein was 7.3 with albumin 3.6 and globulin 3.7. Flu test was negative. IMPRESSIONS: Asthma with exacerbation. COMMENTS AND RECOMMENDATIONS: The patient clinically is improved compared with yesterday. She does feel better. She is currently on azithromycin and ceftriaxone. She is getting DuoNebs every 6 hours. She is on Solu-Medrol 60 mg IV q. 6 hours. She will need to be observed carefully to be sure that this is not exacerbating her depression. If so, it could be weaned. Probably the Solu-Medrol is why she is somewhat improved today. She does have p.r.n. albuterol treatments as well. I will order peak flow to be done daily. The admitting doctor questioned whether bronchoscopy is needed at present based upon the CAT scan findings and her symptoms. I do not advise bronchoscopy at present. She is modestly improved. I prefer to give an asthmatic a chance to improve conservatively because of the risk of bronchospasm associated with bronchoscopy. This can be reassessed on a daily basis. She does not have any lobar atelectasis, segmental atelectasis or even subsegmental atelectasis on the CAT scan. I believe she should have significant hydration to try and thin the secretions. Will order Mucinex as well. Thank you for asking me to assist in her care.
[2017-01-28] MEDS ORDERED: NURSING VERBAL MED ORDER ONE (09:45)
[2017-01-28] MEDS: GUAIFENESIN 600 MG TABCR PO SCH ×2 (10:35→20:10)
[2017-01-28] MEDS: LORAZEPAM 1 MG TAB PO PRN ×3 (10:35→21:47)
[2017-01-28] MEDS: CEFTRIAXONE SOD INJ 1 GM in DEXTROSE 5% ADD-VANTAGE 50ML 50 ML IV SCH (13:04)
[2017-01-28] MEDS: TRIAMTERENE/HCTZ 37.5/25MG TAB PO SCH (14:08)
[2017-01-28] MEDS: AZITHROMYCIN IV 500 MG in DEXTROSE 5% 250ML 250 ML IV SCH (14:32)
[2017-01-29] VITALS (10 sets, daily range): BP systolic 129–153; BP diastolic 77–83; PULSE 70–94; TEMP 36.4–36.9; O2SAT 92–98
[2017-01-29] MEDS: ALBUT/IPRATROP 3MG/0.5MG NEB 3 ML VIAL INH SCH ×4 (01:35→19:26)
[2017-01-29] MEDS: METHYLPREDNISOLONE IV 60 MG in SYRINGE 0 ML IV SCH (01:56)
[2017-01-29] MEDS: HEPARIN SOD 5000 UNIT/0.5 ML CARP SQ SCH ×3 (06:18→20:50)
[2017-01-29] MEDS: LEVOTHYROXINE 112 MCG TAB PO SCH (06:18)
[2017-01-29] MEDS: GUAIFENESIN 600 MG TABCR PO SCH ×2 (08:18→20:49)
[2017-01-29] MEDS: BuPROPion XL 300 MG TABCR PO SCH (08:19)
[2017-01-29] MEDS: MAGNESIUM OXIDE 400 MG TAB PO SCH (08:19)
[2017-01-29] MEDS: PANTOprazole SOD 40 MG TAB PO SCH ×2 (08:19→20:49)
[2017-01-29] MEDS: TRIAMTERENE/HCTZ 37.5/25MG TAB PO SCH (08:19)
[2017-01-29] MEDS: DILTIAZEM HCL 120 MG CAPCR PO SCH (08:20)
[2017-01-29] MEDS: FEXOFENADINE HCL 180 MG TAB PO SCH (08:20)
[2017-01-29] MEDS: VENLAFAXINE HCL XR 75 MG CAPXR PO SCH (08:20)
[2017-01-29] MEDS: BECLOMETHASONE DIP HFA 80 MCG 8.7G INH INH SCH ×2 (08:21→20:49)
--- NOTE | 2017-01-29 08:31 | PULMONARY PROGRESS NOTE ---
DATE: 01/29/2017 TIME: 08:00 a.m. SUBJECTIVE: The patient feels much better. She did expectorate sputum on 3 occasions. It was relatively small quantities. It was now yellow as compared with green. There was no hemoptysis. Her chest feels much less tighter than before. Her shortness of breath is much improved. She has not had any depression associated with the IV steroids. OBJECTIVE: GENERAL: The patient is comfortable at rest. VITAL SIGNS: Temperature is 36.5. Heart rate is 90 beats per minute. Blood pressure 129/77. Respiratory rate is 16 breaths per minute. Saturation is 98% on room air. EARS, NOSE, THROAT: Exam is unremarkable. CHEST: The breath sounds on the right have improved a lot since yesterday. She has just a few mild rales and rhonchi at the right lung base. Left lung was almost clear. It is notable that the patient does wear CPAP at night for obstructive sleep apnea. Her CPAP pressures are 10 and she does wear 2 liters of oxygen into the CPAP. EXTREMITIES: Showed no cyanosis, clubbing or edema. LABORATORY DATA: No laboratory studies were done for today. IMPRESSIONS: 1. Asthma with exacerbation -- much improved. 2. Obstructive sleep apnea. COMMENTS AND RECOMMENDATIONS: The patient is doing well. She is significantly improved. I did a peak flow on her and it was 370. At this point in time, I would substantially decrease her methylprednisolone down to 20 mg IV q. 8 hours. If she continues to improve, she may be ready for discharge tomorrow. I think we should decrease the steroids substantially and see how she does with that change. It seems highly unlikely she would need bronchoscopy based upon her rapid improvement in her status. Dr. Menjivar will be on tomorrow for pulmonary.
[2017-01-29] MEDS: METHYLPREDNISOLONE IV 20 MG in SYRINGE 0 ML IV SCH ×2 (10:13→18:53)
[2017-01-29] MEDS: CEFTRIAXONE SOD INJ 1 GM in DEXTROSE 5% ADD-VANTAGE 50ML 50 ML IV SCH (12:49)
--- NOTE | 2017-01-29 13:26 | Progress Note ---
Subjective Date of Service: Jan 29, 2017. Subjective Pt evaluation today including: conversation w/ patient, physical exam, chart review, lab review, review of studies, review of inpatient medication list Voiding: no voiding problems, no incontinence Pt is seen and examined by me. Pt denies Cp, improved SOB, feels much better, still some shortness of breath but no wheezing, some little cough. Problem List Medical Problems: (1) Anxiety Status: Acute (2) Asthma exacerbation Status: Acute (3) Asthma exacerbation Status: Acute (4) Costochondritis Status: Acute (5) Precordial chest pain Status: Acute Review of Systems Respiratory: + cough (non productive) All Other Systems: Reviewed and Negative Medications Medications (Trade) Dose Ordered Sig/Alba Route Start Time Stop Time Status Last Admin Dose Admin Azithromycin 500 mg/Dextrose 255 ml @ 125 mls/hr Q24H IV 01/28/17 14:00 02/03/17 16:03 01/28/17 14:32 125 MLS/HR Methylprednisolone Sodium Succinate/ Syringe (Solu-Medrol IV/ Syringe) 0.32 ml @ 1.5 mls/min Q8H IV 01/29/17 10:00 02/28/17 09:59 01/29/17 10:13 1.5 MLS/MIN Objective Vital Signs Date Time Temp Pulse Resp B/P Pulse Ox O2 Delivery O2 Flow Rate FiO2 01/29/17 11:41 90 16 97 Room Air 01/29/17 08:30 92 Room Air 01/29/17 07:03 90 16 98 Room Air 01/29/17 06:52 36.5 75 18 129/77 92 Room Air 01/29/17 01:36 82 16 98 BiPAP/CPAP 2.0 01/29/17 00:10 CPAP 2.0 01/28/17 22:32 36.7 78 18 129/77 96 CPAP 2.0 01/28/17 19:26 100 16 98 Room Air 01/28/17 16:00 96 Room Air 01/28/17 15:14 76 16 98 Room Air 01/28/17 14:56 37.0 70 18 121/71 96 Room Air Physical Exam General Appearance: no apparent distress Neck: supple, thyroid normal, no JVD Respiratory/Chest: chest non-tender, normal breath sounds, no respiratory distress, no accessory muscle use, + wheezing (bilateral) Cardiovascular: regular rate, rhythm, no edema, no gallop Abdomen: normal bowel sounds, non tender, soft Extremities: normal range of motion, non-tender, no pedal edema Skin: warm/dry, no rash Laboratory Results Last Resulted CBC 01/27/17 13:29 Red Blood Count 4.45, Mean Corpuscular Volume 91.0, Mean Corpuscular Hemoglobin 31.2, Mean Corpuscular Hemoglobin Concent 34.3, Mean Platelet Volume 11.1, Neutrophils (%) (Auto) 83.3, Lymphocytes (%) (Auto) 7.7, Monocytes (%) (Auto) 8.3, Eosinophils (%) (Auto) 0.1, Basophils (%) (Auto) 0.1, Neutrophils # (Auto) 12.93, Lymphocytes # (Auto) 1.20, Monocytes # (Auto) 1.29, Eosinophils # (Auto) 0.01, Basophils # (Auto) 0.01 Last Resulted BMP 01/27/17 13:29 Assessment and Plan This is a 51 y/o female with PMH of HTN, depression, severe persistent asthma with RLL pneumonia 1) Status asthmaticus resolved some wheezing bilateral , saturation is 92-94% at room air. Pulmonary on board. cont IV steroids, nebulizers, has improved , but still not great air movement, continue current treatment for now. 2) RLL pneumonia, ceftriaxone and azithromycin 3) Depression, stable continue welbutrin DVT: heparin sc Continued [facility] stay due to: multiple IV medications needed Discharge planning: home
[2017-01-29] MEDS: AZITHROMYCIN IV 500 MG in DEXTROSE 5% 250ML 250 ML IV SCH (14:13)
[2017-01-29] MEDS: LORAZEPAM 1 MG TAB PO PRN ×2 (16:06→20:48)
[2017-01-30 01:36] VITALS: PULSE 90; O2SAT 99
[2017-01-30] MEDS: ALBUT/IPRATROP 3MG/0.5MG NEB 3 ML VIAL INH SCH ×3 (01:36→14:08)
[2017-01-30] MEDS: METHYLPREDNISOLONE IV 20 MG in SYRINGE 0 ML IV SCH ×2 (01:55→10:27)
[2017-01-30 05:54] LABS: HEMATOCRIT 39.3 % (37-47); MEAN CELL VOLUME 91.6 fL (80-100); MEAN CORPUSCULAR HEMOGLOBIN 30.8 pg (25-34); MEAN CORPUSCULAR HGB CONC 33.6 g/dl (32-36); MEAN PLATELET VOLUME 10.8 fL (7.4-10.4); PLATELET COUNT 235 K/uL (130-400); RED BLOOD COUNT 4.29 M/uL (4.2-5.4); WHITE BLOOD COUNT 14.46 K/uL (4.8-10.8)
[2017-01-30] MEDS: HEPARIN SOD 5000 UNIT/0.5 ML CARP SQ SCH ×2 (06:00→14:30)
[2017-01-30] MEDS: LEVOTHYROXINE 112 MCG TAB PO SCH (06:04)
[2017-01-30 07:08] VITALS: PULSE 86; O2SAT 94
[2017-01-30 07:24] VITALS: BP 142/92; PULSE 86; TEMP 36.8; O2SAT 96
[2017-01-30] MEDS: TRIAMTERENE/HCTZ 37.5/25MG TAB PO SCH (08:10)
[2017-01-30] MEDS: GUAIFENESIN 600 MG TABCR PO SCH (08:10)
[2017-01-30] MEDS: BuPROPion XL 300 MG TABCR PO SCH (08:11)
[2017-01-30] MEDS: FEXOFENADINE HCL 180 MG TAB PO SCH (08:11)
[2017-01-30] MEDS: MAGNESIUM OXIDE 400 MG TAB PO SCH (08:11)
[2017-01-30] MEDS: PANTOprazole SOD 40 MG TAB PO SCH (08:11)
[2017-01-30] MEDS: DILTIAZEM HCL 120 MG CAPCR PO SCH (08:12)
[2017-01-30] MEDS: VENLAFAXINE HCL XR 75 MG CAPXR PO SCH (08:12)
[2017-01-30] MEDS: BECLOMETHASONE DIP HFA 80 MCG 8.7G INH INH SCH (08:13)
[2017-01-30 08:30] VITALS: O2SAT 96
[2017-01-30] MEDS ORDERED: AMOX875T PO (09:59)
[2017-01-30] MEDS ORDERED: QVRINH80 INH (09:59)
[2017-01-30] MEDS ORDERED: ZTHM250 PO (09:59)
[2017-01-30] MEDS ORDERED: GFNSR600 PO (09:59)
[2017-01-30] MEDS ORDERED: PLMINS NEB (09:59)
[2017-01-30] MEDS ORDERED: AZITHROMYCIN 250 MG TAB PO SCH (12:00)
[2017-01-30] MEDS: CEFTRIAXONE SOD INJ 1 GM in DEXTROSE 5% ADD-VANTAGE 50ML 50 ML IV SCH (13:04)
--- NOTE | 2017-01-30 13:28 | Discharge Instructions ---
Discharge Instructions Date of Service Jan 30, 2017. Admission Reason for Admission: Status Asthmaticus Discharge Discharge Diagnosis / Problem: Asthma exacerbation, Pneumonia Discharge Goals Goal(s): Improve disease control, Therapeutic intervention Activity Recommendations Activity Limitations: resume your previous activity Lifting Limitations: none Exercise/Sports Limitations: gradually increase as tolerated Shower/Bathe: no limitations Driving or Machine Use: no limitations . Instructions / Follow-Up Instructions / Follow-Up You were admitted for an asthma exacerbation and a pneumonia. You were treated with IV antibiotics and IV steroids an had improvement. Please finish out your Augmentin and 2 more days of Azithromycin for your antibiotics. Please finish out your Medrol Dose pac you already have at home. You should follow up with your PCP and with the Tag Marker within 1-2 weeks. Current Hospital Diet Patient's current hospital diet: AHA Diet (Heart Healthy) Discharge Diet Recommended Diet: AHA Diet (Heart Healthy) Procedures Procedures Performed: CT Angiogram Chest Chest xray Pending Studies Studies pending at discharge: no Medical Emergencies . Who to Call and When: Medical Emergencies: If at any time you feel your situation is an emergency, please call 911 immediately. . Non-Emergent Contact Non-Emergency issues call your: Primary Care Provider Call Non-Emergent contact if: you have a fever, you have any medication questions if your shortness of breath or wheezing worsens or returns . . "Provider Documentation" section prepared by Aileen Carranza. VTE Core Measure Inpt VTE Proph given/why not?: Unfractionated heparin SQ, SCD's
[2017-01-30 14:09] VITALS: PULSE 86; O2SAT 96
[2017-01-30 14:25] VITALS: PULSE 86; TEMP 36.8; O2SAT 96
--- NOTE | 2017-01-30 19:30 | Discharge Summary ---
Discharge Summary Date of Service Jan 30, 2017. Discharge Summary Admission Date: Jan 27, 2017 at 16:17 Discharge Date: Jan 30, 2017 Discharge Disposition: Home Principal Diagnosis: Asthma exacerbation, Acute hypoxemic respiratory failure, Pneumonia Problems/Secondary Diagnoses: HTN Depression Hypothyroidism GERD Procedures: CHEST ONE VIEW PORTABLE CLINICAL HISTORY: Shortness of breath, cough. COMPARISON STUDY: January 20, 2017 FINDINGS: The heart is at the upper limits of normal in size. There is no failure. There is no focal pulmonary consolidation. There are no pleural effusions. IMPRESSION: No active disease in the chest. CT ANGIOGRAM OF THE CHEST CLINICAL HISTORY: Shortness of breath, asthma, fatigue. COMPARISON STUDY: Chest x-ray dated 01/27/2017 TECHNIQUE: Following the IV administration of 81 mL of Optiray-320, CT angiogram of the thorax was performed from the thoracic inlet to the lung bases utilizing the pulmonary embolus protocol. Images are reviewed in the axial, sagittal, and coronal planes. IV contrast was administered without complication. MIP imaging was performed. CT DOSE: 471.99 mGy.cm FINDINGS: No pathologically enlarged axillary mediastinal or hilar lymph nodes were visualized. There was no evidence of thoracic aortic dilatation. There were no pulmonary artery filling defects to indicate acute pulmonary embolism. No pleural effusions are visualized. There is a right lower lobe bronchial wall thickening and mucous plugging. IMPRESSION: 1. No CT evidence of acute pulmonary embolism 2. Right lower lobe bronchial wall thickening and mucous plugging Consultations: Pulmonology Medication Reconciliation New Medications: Amoxicillin & Pot Clavulanate (Augmentin 875-125 mg) 1 Tab Tab 875 MG PO BID, #14 TAB Azithromycin (Azithromycin) 250 Mg Tab 250 MG PO DAILY for 2 Days, #2 TAB Budesonide (Budesonide) 0.5 Mg/2 Ml Nebu 1 VIAL NEB HS for 30 Days, 0 Refills Guaifenesin Ext Rel (Mucinex Ext Rel) 600 Mg Tabcr 600 MG PO Q12 for 30 Days Changed Medications: Beclomethasone Dip (Qvar) 80 Mcg/Act Aer 2 PUFFS INH QAM for 30 Days (Changed from: BID) Continued Medications: Bupropion (Wellbutrin-Xl) 300 Mg Tabcr 300 MG PO QAM Diltiazem Hcl (Cardizem) 120 Mg Tab 1 TAB PO QAM Ergocalciferol (Vitamin D 07216 Unit) 50,000 Unit Cap 71826 UNIT PO WK Fexofenadine Hcl (Beti Allergy) 180 Mg Tab 1 TAB PO QAM Ipratropium-Albuterol (Combivent Respimat) 1 Aer Aer 1 PUFFS INH Q4H PRN for SOB/Wheezing, INH Ipratropium-Albuterol (Duoneb) 3 Ml Nebu 1 TREATMENT INH Q4H, INHA Levothyroxine Sodium (Synthroid) 112 Mcg Tab 112 MCG PO QAM Lorazepam (Ativan) 1 Mg Tab 1 MG PO TID PRN for Anxiety Magnesium (Magnesium 250 mg) 1 Tab Tab 1 TAB PO QAM Methylprednisolone (Medrol) 4 Mg Tab 4 MG PO UD, TAB MEDROL DOSE LUIS Omalizumab (Xolair) 150 Mg Nikki 1.8 ML SC [id number] Rabeprazole Sodium (Aciphex) 20 Mg Tab 20 MG PO BID, TAB Salmeterol Xinafoate (Serevent Diskus) 50 Mcg Aerp 1 PUFF INH BID Triamterene/Hctz (Dyazide 37.5MG/25MG) Cap 0.5 TAB PO QAM Venlafaxine Hcl (Effexor) 75 Mg Tab 75 MG PO DAILY, TAB Discontinued Medications: Amoxicillin (Amoxil) 875 Mg Tab 875 MG PO BID PRN for ASTHMA RESCUE KIT, TAB Discharge Exam Review of Systems: Constitutional: No chills, No fever Eyes: No problem reported ENT: No problem reported Respiratory: + cough, + dyspnea on exertion, No sputum, No wheezing Cardiovascular: No chest pain Abdomen: No constipation, No diarrhea, No nausea, No pain, No vomiting Musculoskeletal: No problem reported Genitourinary - Female: No problem reported Neurologic: No problem reported Psychiatric: No problem reported Endocrine: No problem reported Hematologic / Lymphatic: No problem reported Integumentary: No problem reported Physical Exam: General Appearance: WD/WN, no apparent distress, + obese Eyes: normal inspection, sclerae normal ENT: hearing grossly normal, pharynx normal Neck: supple, no adenopathy, thyroid normal, no JVD, trachea midline Respiratory/Chest: no respiratory distress, no accessory muscle use, + crackles (at right base, no wheezes) Cardiovascular: regular rate, rhythm, no edema, no gallop, no murmur, normal peripheral pulses Abdomen / GI: normal bowel sounds, non tender, soft, no organomegaly, no pulsatile mass Extremities: no calf tenderness, no pedal edema, normal range of motion Neurologic/Psychiatric: alert, normal mood/affect, oriented x 3 Skin: normal color, warm/dry, no rash Hospital Course This is a 51 y/o female with PMH of HTN, anxiety/depression, hypothyroidism, GERD, ANDREEA on CPAP with nocturnal O2, admitted for severe persistent asthma exacerbation, acute hypoxemic respiratory failure, with RLL pneumonia. 1) Status asthmaticus/Acute hypoxemic respiratory failure- oxygen saturation normal on room air at rest and with ambulation so no home O2 necessary. Pulmonary on board. Received IV steroids and will switch to Medrol dose pack upon discharge to taper down. Continue inhalers and nebulizers at home (Qvar, Serevent, Budesonide, Duonebs, Combivent). 2) RLL pneumonia on chest CT--> received ceftriaxone and azithromycin here x 3 days, then switch to po Augmentin and Azithro for home courses. 3) Depression, stable continue wellbutrin, Effexor 4) ANDREEA-continue CPAP with nocturnal O2 5) HTN-stable, continue diltiazem, dyazide 6) GERD-continue PPI 7) Hypothryoidism-stable, continue SYnthroid DVT Proph-heparin Dispo-dc to home today with close PCP f/u, f/u Pulm within 1-2 weeks Total Time Spent: Greater than 30 minutes This includes examination of the patient, discharge planning, medication reconciliation, and communication with other providers. Discharge Instructions Please refer to the electronic Patient Visit Report (Discharge Instructions) for additional information. Follow-Up PCP within 1 week Pulm within 1-2 weeks Additional Copies To Anuradha Pierre MD
== END 2017-01-30 15:30 | disposition home or self-care (01) ==
LOC: ENRESERVDT → ENRESERVTM → C.EDB 12:44 → C.2T 16:17 → C.4E 01-28 09:44 → EDBEDREQSVC 01-28 10:11
PROVIDERS: ADMIT Internal Medicine; ATTEND Family Medicine
DX: J45.51 Severe persistent asthma with (acute) exacerbation (principal); J18.9 Pneumonia, unspecified organism; G47.33 Obstructive sleep apnea (adult) (pediatric); F32.9 Major depressive disorder, single episode, unspecified; I10 Essential (primary) hypertension; K21.9 Gastro-esophageal reflux disease without esophagitis; E03.9 Hypothyroidism, unspecified; Z82.49 Family history of ischemic heart disease and other diseases of the circulatory system; Z79.899 Other long term (current) drug therapy

== ENCOUNTER 2017-04-11 20:59 | Emergency (ER) | payer OTHER ==
[~2017-04-11] VITALS: Ht 162.6 cm; Wt 102.0 kg
[~2017-04-11 20:59] MED LIST changes: -AMOX875T3 PO; +AZIT-57 PO; +GFNSR600 PO; +IPRASOL4 INH; +METH1TAB81 PO; +PLMINS NEB
[2017-04-11 21:04] VITALS: TEMP 36.9; Ht 162.6 cm; Wt 102.0 kg
[2017-04-11] MEDS ORDERED: METHYLPREDNISOLONE 125 MG VIAL IV STA (21:14)
[2017-04-11] MEDS ORDERED: ALBUT/IPRATROP 3MG/0.5MG NEB 3 ML VIAL INH ONE (21:15)
[2017-04-11] MEDS ORDERED: QVRINH80 INH (21:31)
[2017-04-11] MEDS ORDERED: GUAI1TAB55 PO (21:35)
[2017-04-11 21:41] LABS: BASO % 0.6 %; BASO ABS # 0.04 K/uL (0-0.2); COMPLETE YES; EOS % 5.1 %; HEMATOCRIT 40.4 % (37-47); IG% 0.2 %; LYMPH % 30.5 %; LYMPH ABS # 1.99 K/uL (1.2-3.4); MEAN CELL VOLUME 94.6 fL (80-100); MEAN CORPUSCULAR HEMOGLOBIN 30.9 pg (25-34); MEAN CORPUSCULAR HGB CONC 32.7 g/dl (32-36); MONO % 10.3 %; NEUT % 53.3 %; PLATELET COUNT 247 K/uL (130-400); RED BLOOD COUNT 4.27 M/uL (4.2-5.4); WHITE BLOOD COUNT 6.52 K/uL (4.8-10.8)
[2017-04-11] MEDS ORDERED: VENL150C56 PO (21:41)
[2017-04-11] MEDS ORDERED: BUDE1SUS INH (21:44)
[2017-04-11 21:55] LABS: POINT OF CARE PRO-BNP < 15 pg/ml (0-900)
[2017-04-11 21:58] LABS: BUN/CREATININE RATIO 18.2 (10-20); POTASSIUM 3.6 mmol/L (3.5-5.1)
[2017-04-11 22:01] VITALS: PULSE 86; O2SAT 96
--- NOTE | 2017-04-11 22:12 | DIAGNOSTIC IMAGING REPORT ---
CHEST ONE VIEW PORTABLE HISTORY: Atypical CHEST PAIN COMPARISON: Chest 01/27/2017. FINDINGS: The lungs are clear. Cardiac silhouette is normal in size. No pleural effusions. No pneumothorax. IMPRESSION: No acute process. Electronically signed by: Zev Flores M.D. 04/11/2017 10:11 PM Dictated Date/Time: 04/11/2017 10:09 PM
[2017-04-11] MEDS ORDERED: AZITTAB PO (23:12)
[2017-04-11] MEDS ORDERED: AZITHROMYCIN 250 MG TAB PO ONE (23:15)
--- NOTE | 2017-04-11 23:16 | EMERGENCY ROOM VISIT NOTE ---
History Report prepared by Sandi: Larisa Wilkerson Under the Supervision of: Dr. Jose Camacho M.D. First contact with patient: 21:09 Chief Complaint: SHORTNESS OF BREATH Stated Complaint: SOB,CHEST TIGHTNESS,"BARKING" COUGH, HAS ASTHMA Nursing Triage Summary: Several month history of cough, today barking cough, non-productive, with exertional SOB; history of asthma History of Present Illness The patient is a 51 year old female who presents to the Emergency Room with complaints of persistent SOB starting today. The patient was in the hospital 2.5 months ago with pneumonia. Since being discharged, she has had a cough. Today the cough turned into a barking cough. She also started having some chest tightness. She has a history of asthma and her symptoms feels like her asthma. She denies any pain or swelling in the legs, fever, chills, nausea, or vomiting. She denies any sick contacts. She has not been on steroids for 2 weeks now. She was last on antibiotics 2 months ago. She is starting pulmonary rehab tomorrow. She has been doing nebulizer treatments at home. She denies any history of cardiac disease. Source of History: patient Onset: today Position: other (global) Quality: other (SOB) Timing: other (persistent) Associated Symptoms: + cough, No chills, No fevers, No nausea, No vomiting Note: Pt reports chest tightness. Pt denies pain or swelling in the legs. Review of Systems See HPI for pertinent positives & negatives. A total of 10 systems reviewed and were otherwise negative. Past Medical & Surgical Medical Problems: (1) Asthma (2) GERD (gastroesophageal reflux disease) (3) Hypothyroid (4) Pneumonia (5) Pneumonia (6) Status asthmaticus Surgical Problems: (1) History of cholecystectomy Old medical records were reviewed. Nurse's notes were reviewed and I agree with. Family History FH: heart disease Social History Smoking Status: Never Smoker Drug Use: none Marital Status: Housing Status: lives with family Occupation Status: employed Current/Historical Medications Scheduled Azithromycin (Zithromax Z-John), 0 PO UD Budesonide (Inhalation) (Pulmicort), 2 ML INH BID Bupropion (Wellbutrin-Xl), 300 MG PO QAM Diltiazem Hcl (Cardizem), 120 MG PO QAM Ergocalciferol (Vitamin D 87251 Unit), 50,000 UNIT PO WK Fexofenadine Hcl (Beti Allergy), 180 MG PO QAM Guaifenesin Ext Rel (Mucinex Ext Rel), 600 MG PO Q12 Levothyroxine Sodium (Synthroid), 112 MCG PO QAM Magnesium (Magnesium 250 mg), 250 MG PO QAM Omalizumab (Xolair), 1.8 ML SQ [id number] Rabeprazole Sodium (Aciphex), 20 MG PO BID Salmeterol Xinafoate (Serevent Diskus), 1 PUFF INH BID Triamterene/Hctz (Dyazide 37.5MG/25MG), 0.5 TAB PO QAM Venlafaxine Hcl (Effexor Extended Rel), 150 MG PO DAILY Scheduled PRN Ipratropium-Albuterol (Combivent Respimat), 1 PUFFS INH Q4H PRN for SOB/Wheezing Ipratropium-Albuterol (Duoneb), 1 TREATMENT INH Q4H PRN for SOB/Wheezing Lorazepam (Ativan), 1 MG PO TID PRN for Anxiety Allergies Coded Allergies: Quinolones (Unverified Allergy, Mild, RASH, 01/20/17) Buspirone (Verified Allergy, Unknown, ASTHMA, 01/20/17) Fluticasone (Verified Allergy, Unknown, FUNGAL INFECTION, 01/20/17) Prednisone (Verified Adverse Reaction, Unknown, SEVERE DEPRESSION, 01/20/17) Physical Exam Vital Signs Date Time Temp Pulse Resp B/P Pulse Ox O2 Delivery O2 Flow Rate FiO2 04/11/17 23:39 109 18 133/90 93 04/11/17 22:42 98 18 149/85 100 04/11/17 22:01 86 24 96 04/11/17 21:04 Room Air 95 04/11/17 21:04 36.9 111 20 141/87 95 Room Air Physical Exam General: Middle age female who has an occasional hacking cough, but appears to have no respiratory distress. Well developed well nourished in no acute distress , breathing comfortably on room air. Normal speech HEENT: Normal cephalic atraumatic. Pupils are equal round and reactive to light. Extraocular movements are intact. Oropharynx is pink with moist mucous membranes. No swelling of the mouth lips or tongue. Neck: Supple with a midline trachea. No meningeal signs or stiffness, no JVD or bruits. No Stridor. Chest: Good air movement with occasional rhonchi. No increased work of breathing. Heart: regular rate and rhythm. Abdomen: Soft nontender, nondistended without rebound guarding or rigidity. Extremities: No cyanosis clubbing or edema. No calf tenderness or assymetry Spine/Back. Non tender to palpation. No CVA tenderness Skin: Good turgor without rashes. Neurologic exam: Cranial nerves two through 12 are intact. Motor and sensation are intact and symmetrical throughout. Medical Decision & Procedures ER Provider Diagnostic Interpretation: X-ray results as stated below per interpretation by me and the radiologist: CHEST ONE VIEW PORTABLE HISTORY: Atypical CHEST PAIN COMPARISON: Chest 01/27/2017. FINDINGS: The lungs are clear. Cardiac silhouette is normal in size. No pleural effusions. No pneumothorax. IMPRESSION: No acute process. Electronically signed by: Zev Flores M.D. 04/11/2017 10:11 PM Dictated Date/Time: 04/11/2017 10:09 PM Laboratory Results 04/11/17 21:30 Red Blood Count 4.27, Mean Corpuscular Volume 94.6, Mean Corpuscular Hemoglobin 30.9, Mean Corpuscular Hemoglobin Concent 32.7, Mean Platelet Volume 11.0, Neutrophils (%) (Auto) 53.3, Lymphocytes (%) (Auto) 30.5, Monocytes (%) (Auto) 10.3, Eosinophils (%) (Auto) 5.1, Basophils (%) (Auto) 0.6, Neutrophils # (Auto ) 3.48, Lymphocytes # (Auto) 1.99, Monocytes # (Auto) 0.67, Eosinophils # (Auto ) 0.33, Basophils # (Auto) 0.04 04/11/17 21:30 Test 04/11/17 21:30 04/11/17 21:35 White Blood Count 6.52 K/uL (4.8-10.8) Red Blood Count 4.27 M/uL (4.2-5.4) Hemoglobin 13.2 g/dL (12.0-16.0) Hematocrit 40.4 % (37-47) Mean Corpuscular Volume 94.6 fL (80-100) Mean Corpuscular Hemoglobin 30.9 pg (25-34) Mean Corpuscular Hemoglobin Concent 32.7 g/dl (32-36) Platelet Count 247 K/uL (130-400) Mean Platelet Volume 11.0 fL (7.4-10.4) Neutrophils (%) (Auto) 53.3 % Lymphocytes (%) (Auto) 30.5 % Monocytes (%) (Auto) 10.3 % Eosinophils (%) (Auto) 5.1 % Basophils (%) (Auto) 0.6 % Neutrophils # (Auto) 3.48 K/uL (1.4-6.5) Lymphocytes # (Auto) 1.99 K/uL (1.2-3.4) Monocytes # (Auto) 0.67 K/uL (0.11-0.59) Eosinophils # (Auto) 0.33 K/uL (0-0.5) Basophils # (Auto) 0.04 K/uL (0-0.2) RDW Standard Deviation 49.7 fL (36.4-46.3) RDW Coefficient of Variation 14.5 % (11.5-14.5) Immature Granulocyte % (Auto) 0.2 % Immature Granulocyte # (Auto) 0.01 K/uL (0.00-0.02) Anion Gap 9.0 mmol/L (3-11) Est Creatinine Clear Calc Drug Dose 75.6 ml/min Estimated GFR () 74.5 Estimated GFR (Non- 64.3 BUN/Creatinine Ratio 18.2 (10-20) Calcium Level 9.0 mg/dl (8.5-10.1) Bedside Troponin I 0.000 ng/ml (0-0.045) UG-Qln-G-Type Natriuretic Peptide < 15 pg/ml (0-900) Laboratory studies as stated above per my review. Medications Administered Medications (Trade) Dose Ordered Sig/Alba Route Start Time Stop Time Status Last Admin Dose Admin Methylprednisolone Sodium Succinate (Solu-Medrol IV) 125 mg NOW STAT IV 04/11/17 21:14 04/11/17 21:16 DC 04/11/17 21:32 125 MG Albuterol/ Ipratropium (Duoneb) 12 ml ONE ONCE INH 04/11/17 21:15 04/11/17 21:17 DC 04/11/17 21:15 12 ML Azithromycin (Zithromax Tab) 500 mg NOW ONCE PO 04/11/17 23:15 04/11/17 23:16 DC 04/11/17 23:38 500 MG ECG Indication: SOB/dyspnea Rate (beats per minute): 100 Rhythm: normal sinus Findings: no acute ischemic change, no ectopy Comparison ECG Date: 27-Jan-2017 Change: no significant change ED Course 2110: Past medical records reviewed. The patient was evaluated in room B4B, and a complete history and physical examination were performed. 2113: Solu-Medrol IV 125 mg IV. 2114: Duoneb 12 ml INH. 2307: Upon reevaluation, the patient is resting comfortably. I discussed the results and treatment plan with her. She verbalized agreement of the treatment plan. The patient was discharged home. 5: Azithromycin 500 mg PO. Medical Decision Differentials include, but are not limited to; asthma exacerbation, bronchitis, pneumonia, CHF. This patient comes in as described above. She was placed on air sampling and monitoring in room B3. She is here for treatment and evaluation of shortness of breath and cough. She has a history of asthma. She looks well on exam and only has a deep hacking cough with some occasional rhonchi. She's not hypoxemic. IV access established was given saw a Medrol 125 mg IV. She was given albuterol/ Atrovent nebs over 1 hour .chest x-ray does not show congestive heart failure, pneumonia, or pneumothorax. EKG does not suggest acute cardiac event nor do her symptoms. Her troponin is not elevated. She's had no white count or fever. I think she does have a bronchitis and this may exacerbate her asthma. She's also concerned that she could have some allergies exacerbate her asthma she's been using antihistamines. She feels significantly better and upon reassessment her lungs sound clear. She is going to pulmonary rehabilitation tomorrow . I told her to get rechecked there and she may ultimately need further steroids or treatment. She was given azithromycin 500 mg by mouth cover for atypical pathogens as well as a Z-John. She is feeling better and will be discharged home. Impression Primary Impression: Bronchitis Additional Impression: Asthma exacerbation Scribe Attestation The scribe's documentation has been prepared under my direction and personally reviewed by me in its entirety. I confirm that the note above accurately reflects all work, treatment, procedures, and medical decision making performed by me. Departure Information Dispostion Home / Self-Care Prescriptions Azithromycin (ZITHROMAX Z-JOHN) 250 Mg Tab 0 PO UD, #1 PKT Prov: Jose Camacho M.D. 04/11/17 Referrals Anuradha Pierre MD (PCP) Forms HOME CARE DOCUMENTATION FORM, IMPORTANT VISIT INFORMATION Patient Instructions My [facility] Additional Instructions Rest. Drink plenty of fluids. Use azithromycin Z-John as directedantibiotic Follow-up with your home school coordinator/pulmonary rehabilitation tomorrow You may ultimately need further steroids Return if: Worsening symptoms, increasing shortness of breath, fever chills, any new problems or concerns. Problem Qualifiers
[2017-04-11 23:39] VITALS: BP 133/90; PULSE 109; O2SAT 93
== END 2017-04-11 23:39 | disposition home or self-care (01) ==
LOC: C.EDB 21:01
DX: J45.901 Unspecified asthma with (acute) exacerbation (principal); K21.9 Gastro-esophageal reflux disease without esophagitis; E03.9 Hypothyroidism, unspecified; Z87.01 Personal history of pneumonia (recurrent); Z90.49 Acquired absence of other specified parts of digestive tract; Z79.899 Other long term (current) drug therapy

== ENCOUNTER → 2018-03-12 | Outpatient (CLI) | payer OTHER ==
[~2018-03-12] MED LIST changes: -AZIT-57 PO; +BUDE1SUS INH; -EFF75 PO; -GFNSR600 PO; +GUAI1TAB55 PO; -METH1TAB81 PO; -PLMINS NEB; -QVRINH80 INH; +VENL150C56 PO
== END | disposition home or self-care (01) ==
LOC: C.PAPS 16:50
PROVIDERS: ATTEND Obstetrics & Gynecology
DX: Z01.419 Encounter for gynecological examination (general) (routine) without abnormal findings (principal)

== ENCOUNTER 2021-07-01 21:34 | Inpatient (IN) ==
[2021-07-01] MEDS ORDERED: ONDANSETRON INJ 2 MG/ML 2 ML VIAL IV STA (22:20)
[2021-07-01] MEDS ORDERED: LORazepam 1 MG/2 ML VIAL IV STA (22:20)
[2021-07-01] MEDS ORDERED: SODIUM CHLORIDE 0.9% 1000ML 1,000 ML IV ONE (22:24)
[2021-07-01] MEDS ORDERED: VANCOMYCIN CONSULT ACTIVE PRN (22:24)
[2021-07-01] MEDS ORDERED: VANCOMYCIN HCL 2,000 MG in SODIUM CHLORIDE 0.9% 500 ML IV ONE (22:24)
[2021-07-01] MEDS ORDERED: cefTRIAXone SODIUM 2,000 MG/70 ML BAG IV STA (22:24)
[2021-07-01 22:43] LABS: Basophils # (auto) 0.03 K/uL (0-0.2); Basophils % (auto) 0.4 %; Eosinophils # (auto) 0.06 K/uL (0-0.5); Eosinophils % (auto) 0.8 %; Hematocrit (blood only) 38.6 % (37-47); Hemoglobin 12.5 g/dL (12.0-16.0); Immature Granulocytes # (auto) 0.02 K/uL (0.00-0.02); Immature Granulocytes % (auto) 0.3 %; Lymphocytes # (auto) 2.08 K/uL (1.2-3.4); Lymphocytes % (auto) 29.3 %; Mean Corpuscular Hemoglobin 31.6 pg (25-34); Mean Corpuscular Hgb Conc 32.4 g/dL (32-36); Mean Corpuscular Volume 97.5 fL (80-100); Mean Platelet Volume 10.6 fL (7.4-10.4); Monocytes # (auto) 0.93 K/uL (0.11-0.59); Monocytes % (auto) 13.1 %; Neutrophils # (auto) 3.98 K/uL (1.4-6.5); Neutrophils % (auto) 56.1 %; Platelet Count 265 K/uL (130-400); RDW Coefficient of Variation 14.2 % (11.5-14.5); RDW Standard Deviation 50.7 fL (36.4-46.3); Red Blood Count 3.96 M/uL (4.2-5.4)
[2021-07-01 23:03] LABS: Albumin Level 3.9 gm/dl (3.4-5.0); BUN Creatinine Ratio 17.3 (10-20); C Reactive Protein 0.77 mg/dl (0-0.29); Calcium 8.7 mg/dl (8.5-10.1); Creatinine Clr Calc Pharmacy 79.6 ml/min; Est GFR (African American) 80.6 ml/min; Est GFR (Non-African American) 69.5 ml/min; Magnesium 1.8 mg/dl (1.8-2.4); Potassium 3.2 mmol/L (3.5-5.1)
[2021-07-01 23:06] LABS: Albumin Globulin Ratio 1.1 (0.9-2); Bilirubin,Total 0.2 mg/dl (0.2-1); Globulin 3.5 gm/dl (2.5-4.0); Total Protein 7.4 gm/dl (6.4-8.2)
[2021-07-01 23:38] LABS: INR 1.1 (0.9-1.1); Partial Thromboplastin Ratio 1.2; Partial Thromboplastin Time 31.2 Seconds (21.0-31.0); Prothrombin Time 10.7 Seconds (9.0-12.0)
[2021-07-01] MEDS ORDERED: lisinopril 5 MG TAB PO ONE (23:41)
[2021-07-01] MEDS ORDERED: POTASSIUM CHLORIDE CRTAB 20 MEQ TABCR PO STA (23:41)
[2021-07-02 00:09] LABS: Appearance Urine Clear (Clear); Bilirubin Urine Negative (Negative); Blood Urine Negative (Negative); Color Urine Yellow; Glucose Urine UA Negative (Negative); Ketones Urine Negative (Negative); Leukocyte Esterase Urine Negative (Negative); Nitrite Urine Negative (Negative); Protein Urine Negative (Negative); Specific Gravity Urine 1.003 (1.000-1.030); Urobilinogen Urine Negative (Negative)
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
[2021-07-02] MEDS ORDERED: diphenhydrAMINE 50 MG/ML VIAL IV STA (00:42)
--- NOTE | 2021-07-02 00:56 | Emergency Department Note ---
History of Present Illness General Chief complaint: Knee Injury/Pain Stated complaint: L KNEE PAIN Time Seen by Provider: 07/01/21 22:04 History of Present Illness This 56 yo presents to the ER complaining of left knee infection Location: Left knee Quality: Swollen Severity: Moderate Duration: Past few days Timing: Started few days ago Context: Patient was concerned and came in Modifying factors: better with rest; worse with movement Patient states after her last ER visit with myself, she followed up with Ortho and had the hematoma drained. Patient states shortly after this the knee became red swollen and infected. She then came here. Patient denies fevers, vomiting, flulike illness. Home Medications Medication Instructions Recorded Confirmed Type Oxygen Home #1 ea 08/27/19 06/01/21 History primidone 50 mg tablet See Rx Instructions .ROUTE .COMPLEX 08/27/19 07/01/21 History venlafaxine 75 mg capsule,extended 75 mg PO DAILY 08/27/19 07/01/21 History release 24 hr budesonide-formoterol HFA 160 2 puff INHALATION BID 11/04/19 07/01/21 History mcg-4.5 mcg/actuation aerosol inhaler (Symbicort) cetirizine 10 mg tablet 10 mg PO DAILY 11/04/19 07/02/21 History lamotrigine 150 mg tablet 150 mg PO AMPM 11/04/19 07/01/21 History lorazepam 1 mg tablet 1 mg PO TID PRN 11/04/19 07/01/21 History montelukast 10 mg tablet 10 mg PO HS 11/04/19 07/01/21 History triamterene 37.5 0.5 tab PO QAM 11/04/19 07/01/21 History mg-hydrochlorothiazide 25 mg tablet venlafaxine 150 mg 150 mg PO DAILY 11/04/19 07/01/21 History capsule,extended release 24 hr estradiol 0.05 mg/24 hr semiweekly 1 patch TRANSDERMAL .COMPLEX #24 ea 06/01/21 07/01/21 Rx transdermal patch prazosin 1 mg capsule 1 mg PO HS 06/01/21 07/01/21 History progesterone micronized 100 mg 100 mg PO DAILY 90 Days #90 cap 06/01/21 07/01/21 Rx capsule (Prometrium) oxycodone-acetaminophen 5 mg-325 1 tab PO Q6H PRN #12 tab 06/04/21 07/01/21 Rx mg tablet (Percocet) albuterol sulfate 90 mcg/actuation 1 - 2 puff INHALATION Q6 PRN 07/01/21 07/01/21 History aerosol inhaler levothyroxine 125 mcg tablet 125 mcg PO DAILYBB 07/01/21 07/01/21 History ondansetron 4 mg disintegrating 4 mg PO Q8 PRN 07/01/21 07/01/21 History tablet rabeprazole 20 mg tablet,delayed 20 mg PO BID 07/01/21 07/01/21 History release bupropion HCl 150 mg 24 hr tablet, 150 mg PO QAM 07/02/21 07/02/21 History extended release bupropion HCl 300 mg 24 hr tablet, 300 mg PO QAM 07/02/21 07/02/21 History extended release Allergies Allergy/AdvReac Type Severity Reaction Status Date / Time Quinolones Allergy Mild RASH Verified 07/01/21 23:30 vancomycin Allergy Mild Rash Verified 07/02/21 00:42 buspirone Allergy Unknown ASTHMA Verified 07/01/21 23:30 fluticasone Allergy Unknown FUNGAL Verified 07/01/21 23:30 INFECTION latex Allergy rash, Verified 07/01/21 23:30 itching prednisone AdvReac Unknown SEVERE Verified 07/01/21 23:30 DEPRESSION Past Med/Surg History Medical History Asthma Depression Encounter for Essure implantation Factor V Leiden carrier GERD (gastroesophageal reflux disease) Headache History of candidiasis of mouth Hypertension Hypothyroid Postmenopausal hormone replacement therapy Sleep apnea Social anxiety disorder Surgical History H/O hernia repair x2 H/O laparoscopy excision uterine surface endometriotic tissue H/O shoulder surgery H/O sinus surgery 2002 History of endometrial ablation S/P section x2 S/P cholecystectomy Family History Family/Other Myocardial infarction Grandmother Myocardial infarction Grandfather Myocardial infarction Mother Factor V deficiency Breast cancer, Onset Age: 75 bilateral, ? Estrogen receptor positive. Sister Factor V deficiency Grandmother (Maternal) Breast cancer, Onset Age: 76 Denies family history of Ovarian cancer Prostate cancer Colorectal cancer Uterine cancer Social History Smoking Status: Never smoker Second Hand Exposure: No; Hx Alcohol Use: Yes Hx Substance Use: No Preferred Language: [place] Feels Safe at Home: Yes Dental Care, Regularly: Yes Physical Activity Frequency: Does not Exercise Seatbelt Use: always Review of Systems A total of 10 systems reviewed and were otherwise negative Physical Exam Vital Signs Vital Signs - 24 hr 07/01/21 21:37 07/01/21 22:21 07/01/21 22:51 Temperature 36.1 C L Temperature Source Temporal Artery Scan Pulse Rate 95 H Pulse Rate [Radial] Pulse Rhythm Regular Respiratory Rate 20 18 Respiratory Effort / Characteristics Non-Labored Spontaneous Non-Labored Non-Labored Respiratory Depth Normal Respiratory Pattern Regular Blood Pressure 151/93 H Blood Pressure [Right Arm] Blood Pressure Mean 112 Blood Pressure Mean [Right Arm] Pulse Oximetry 98 Oxygen Delivery Method Room Air Room Air Sepsis Recent Fever Within 48 Hours No Sepsis New/Unexplained Change in Mental Status No Sepsis Action Taken by Nursing No Action Required 07/01/21 23:12 07/01/21 23:43 07/01/21 23:44 Temperature Temperature Source Pulse Rate Pulse Rate [Radial] 78 71 Pulse Rhythm Respiratory Rate 18 18 Respiratory Effort / Characteristics Non-Labored Respiratory Depth Respiratory Pattern Blood Pressure Blood Pressure [Right Arm] 180/101 H 154/99 H Blood Pressure Mean Blood Pressure Mean [Right Arm] 127 117 Pulse Oximetry 95 100 Oxygen Delivery Method Room Air Room Air Sepsis Recent Fever Within 48 Hours Sepsis New/Unexplained Change in Mental Status Sepsis Action Taken by Nursing 07/02/21 00:00 07/02/21 00:30 07/02/21 01:00 Temperature Temperature Source Pulse Rate Pulse Rate [Radial] 83 Pulse Rhythm Respiratory Rate 18 Respiratory Effort / Characteristics Non-Labored Non-Labored Non-Labored Respiratory Depth Respiratory Pattern Blood Pressure Blood Pressure [Right Arm] 162/97 H Blood Pressure Mean Blood Pressure Mean [Right Arm] 118 Pulse Oximetry 99 Oxygen Delivery Method Sepsis Recent Fever Within 48 Hours Sepsis New/Unexplained Change in Mental Status Sepsis Action Taken by Nursing 07/02/21 01:30 Temperature Temperature Source Pulse Rate Pulse Rate [Radial] 82 Pulse Rhythm Respiratory Rate 18 Respiratory Effort / Characteristics Non-Labored Respiratory Depth Respiratory Pattern Blood Pressure Blood Pressure [Right Arm] 138/82 Blood Pressure Mean Blood Pressure Mean [Right Arm] 100 Pulse Oximetry 99 Oxygen Delivery Method Room Air Sepsis Recent Fever Within 48 Hours Sepsis New/Unexplained Change in Mental Status Sepsis Action Taken by Nursing VITALS: Vitals are noted on the nurse's note and reviewed by myself. Vital signs stable. GENERAL: Pleasant female, in no acute distress, nondiaphoretic, well-developed well-nourished. SKIN: Capillary reflex less than 2 seconds. HEENT: Normocephalic. PERRLA. EOMI. Nares patent. Mucous membranes moist. Neck is supple without nuchal rigidity. HEART: Regular rate and rhythm without murmurs gallops or rubs. LUNGS: Clear to auscultation bilaterally without wheezes, rales or rhonchi. No retractions or accessory muscle use. ABDOMEN: Positive bowel sounds x 4. Normal tympanic percussion. Soft, nontender, without masses or organomegaly. Womack sign negative. No guarding or rebound tenderness. MUSCULOSKELETAL: No gross musculoskeletal defects. Left knee erythematous and edematous with abrasion present concerning for infection. NEURO: Patient was alert and oriented to person place and time. Normal sensation to light and sharp touch. No focal neurological deficits. Course Administered Medications Discontinued Medications Diphenhydramine HCl (Diphenhydramine 50 Mg/Ml Vial) 25 mg IV NOW STA Stop: 07/02/21 00:43 Last Admin: 07/02/21 00:55 Dose: 25 mg Documented by: [id number] Lorazepam (Ativan) 1 mg in 2 mls @ 2 mls/min IV NOW STA Stop: 07/01/21 22:21 Last Admin: 07/01/21 22:36 Dose: 2 mls/min Documented by: [id number] Vancomycin HCl 2,000 mg/ (Sodium Chloride) 540 mls @ 200 mls/hr IV NOW ONE Stop: 07/02/21 01:05 Last Infusion: 07/02/21 01:19 Dose: 0 mls/hr Documented by: [id number] Admin: 07/01/21 22:36 Dose: 200 mls/hr Documented by: [id number] Ceftriaxone Sodium (Rocephin) 2,000 mg in 70 mls @ 140 mls/hr IV NOW STA Stop: 07/01/21 22:53 Last Infusion: 07/02/21 01:19 Dose: 0 mls/hr Documented by: [id number] Admin: 07/01/21 23:57 Dose: 140 mls/hr Documented by: [id number] Sodium Chloride (Nss 1000ml) 1,000 mls @ 999 mls/hr IV .Q1H1M ONE Stop: 07/01/21 23:24 Last Infusion: 07/01/21 23:49 Dose: 0 mls/hr Documented by: [id number] Admin: 07/01/21 22:37 Dose: 999 mls/hr Documented by: [id number] Lisinopril (Lisinopril 5 Mg Tab) 2.5 mg PO ONE ONE Stop: 07/01/21 23:42 Last Admin: 07/01/21 23:57 Dose: 2.5 mg Documented by: [id number] Ondansetron HCl (Ondansetron Inj 2 Mg/Ml 2 Ml Vial) 4 mg IV NOW STA Stop: 07/01/21 22:21 Last Admin: 07/01/21 22:36 Dose: 4 mg Documented by: [id number] Potassium Chloride (Potassium Chloride Crtab 20 Meq Tabcr) 40 meq PO NOW STA Stop: 07/01/21 23:42 Last Admin: 07/01/21 23:57 Dose: 40 meq Documented by: [id number] Medical Decision Making Medical Records Attestation: I reviewed the patient's medical records. Home Medications Current Medication List: was personally reviewed by me Laboratory Data Attestation: I reviewed the patient's lab results. Result diagrams: 07/01/21 22:33 07/01/21 22:33 Lab Results 07/01/21 07/01/21 07/01/21 Range/Units 22:33 22:33 22:33 WBC 7.10 (4.8-10.8) K/uL RBC 3.96 L (4.2-5.4) M/uL Hgb 12.5 (12.0-16.0) g/dL Hct 38.6 (37-47) % MCV 97.5 (80-100) fL MCH 31.6 (25-34) pg MCHC 32.4 (32-36) g/dL RDW Std Deviation 50.7 H (36.4-46.3) fL RDW Coeff of Janice 14.2 (11.5-14.5) % Plt Count 265 (130-400) K/uL MPV 10.6 H (7.4-10.4) fL Immature Gran % (Auto) 0.3 % Neut % (Auto) 56.1 % Lymph % (Auto) 29.3 % [place] % (Auto) 13.1 % Eos % (Auto) 0.8 % Baso % (Auto) 0.4 % Neut # (Auto) 3.98 (1.4-6.5) K/uL Lymph # (Auto) 2.08 (1.2-3.4) K/uL [place] # (Auto) 0.93 H (0.11-0.59) K/uL Eos # (Auto) 0.06 (0-0.5) K/uL Baso # (Auto) 0.03 (0-0.2) K/uL Immature Gran # (Auto) 0.02 (0.00-0.02) K/uL ESR 13 (0-30) mm/hr PT (9.0-12.0) Seconds INR (0.9-1.1) APTT (21.0-31.0) Seconds PTT Ratio Sodium 137 (136-145) mmol/L Potassium 3.2 L (3.5-5.1) mmol/L Chloride 104 (98-107) mmol/L Carbon Dioxide 30 (21-32) mmol/L Anion Gap 3.0 (3-11) BUN 16 (7-18) mg/dl Creatinine 0.91 (0.6-1.2) mg/dl Est Cr Clr Drug Dosing 79.6 ml/min Est GFR ( Amer) 80.6 ml/min Est GFR (Non-Af Amer) 69.5 ml/min BUN/Creatinine Ratio 17.3 (10-20) Glucose 88 (70-99) mg/dl Lactate (0.4-2.0) mmol/L Calcium 8.7 (8.5-10.1) mg/dl Magnesium 1.8 (1.8-2.4) mg/dl Total Bilirubin 0.2 (0.2-1) mg/dl AST 15 (15-37) U/L ALT 24 (12-78) U/L Alkaline Phosphatase 77 (45-117) U/L C-Reactive Protein 0.77 H (0-0.29) mg/dl Total Protein 7.4 (6.4-8.2) gm/dl Albumin 3.9 (3.4-5.0) gm/dl Globulin 3.5 (2.5-4.0) gm/dl Albumin/Globulin Ratio 1.1 (0.9-2) Procalcitonin (0-0.5) ng/ml Urine Color Urine Appearance (Clear) Urine pH (4.5-7.5) Ur Specific [place] (1.000-1.030) Urine Protein (Negative) Urine Glucose (UA) (Negative) Urine Ketones (Negative) Urine Blood (Negative) Urine Nitrite (Negative) Urine Bilirubin (Negative) Urine Urobilinogen (Negative) Ur Leukocyte Esterase (Negative) COVID-19 Eval Order SARS-CoV-2 (PCR) (Negative) 07/01/21 07/01/21 07/01/21 Range/Units 22:33 22:33 23:10 WBC (4.8-10.8) K/uL RBC (4.2-5.4) M/uL Hgb (12.0-16.0) g/dL Hct (37-47) % MCV (80-100) fL MCH (25-34) pg MCHC (32-36) g/dL RDW Std Deviation (36.4-46.3) fL RDW Coeff of Janice (11.5-14.5) % Plt Count (130-400) K/uL MPV (7.4-10.4) fL Immature Gran % (Auto) % Neut % (Auto) % Lymph % (Auto) % [place] % (Auto) % Eos % (Auto) % Baso % (Auto) % Neut # (Auto) (1.4-6.5) K/uL Lymph # (Auto) (1.2-3.4) K/uL [place] # (Auto) (0.11-0.59) K/uL Eos # (Auto) (0-0.5) K/uL Baso # (Auto) (0-0.2) K/uL Immature Gran # (Auto) (0.00-0.02) K/uL ESR (0-30) mm/hr PT 10.7 (9.0-12.0) Seconds INR 1.1 (0.9-1.1) APTT 31.2 H (21.0-31.0) Seconds PTT Ratio 1.2 Sodium (136-145) mmol/L Potassium (3.5-5.1) mmol/L Chloride (98-107) mmol/L Carbon Dioxide (21-32) mmol/L Anion Gap (3-11) BUN (7-18) mg/dl Creatinine (0.6-1.2) mg/dl Est Cr Clr Drug Dosing ml/min Est GFR ( Amer) ml/min Est GFR (Non-Af Amer) ml/min BUN/Creatinine Ratio (10-20) Glucose (70-99) mg/dl Lactate 0.5 (0.4-2.0) mmol/L Calcium (8.5-10.1) mg/dl Magnesium (1.8-2.4) mg/dl Total Bilirubin (0.2-1) mg/dl AST (15-37) U/L ALT (12-78) U/L Alkaline Phosphatase (45-117) U/L C-Reactive Protein (0-0.29) mg/dl Total Protein (6.4-8.2) gm/dl Albumin (3.4-5.0) gm/dl Globulin (2.5-4.0) gm/dl Albumin/Globulin Ratio (0.9-2) Procalcitonin < 0.05 (0-0.5) ng/ml Urine Color Urine Appearance (Clear) Urine pH (4.5-7.5) Ur Specific [place] (1.000-1.030) Urine Protein (Negative) Urine Glucose (UA) (Negative) Urine Ketones (Negative) Urine Blood (Negative) Urine Nitrite (Negative) Urine Bilirubin (Negative) Urine Urobilinogen (Negative) Ur Leukocyte Esterase (Negative) COVID-19 Eval Order SARS-CoV-2 (PCR) (Negative) 07/01/21 07/01/21 07/01/21 Range/Units 23:10 23:10 23:39 WBC (4.8-10.8) K/uL RBC (4.2-5.4) M/uL Hgb (12.0-16.0) g/dL Hct (37-47) % MCV (80-100) fL MCH (25-34) pg MCHC (32-36) g/dL RDW Std Deviation (36.4-46.3) fL RDW Coeff of Janice (11.5-14.5) % Plt Count (130-400) K/uL MPV (7.4-10.4) fL Immature Gran % (Auto) % Neut % (Auto) % Lymph % (Auto) % [place] % (Auto) % Eos % (Auto) % Baso % (Auto) % Neut # (Auto) (1.4-6.5) K/uL Lymph # (Auto) (1.2-3.4) K/uL [place] # (Auto) (0.11-0.59) K/uL Eos # (Auto) (0-0.5) K/uL Baso # (Auto) (0-0.2) K/uL Immature Gran # (Auto) (0.00-0.02) K/uL ESR (0-30) mm/hr PT (9.0-12.0) Seconds INR (0.9-1.1) APTT (21.0-31.0) Seconds PTT Ratio Sodium (136-145) mmol/L Potassium (3.5-5.1) mmol/L Chloride (98-107) mmol/L Carbon Dioxide (21-32) mmol/L Anion Gap (3-11) BUN (7-18) mg/dl Creatinine (0.6-1.2) mg/dl Est Cr Clr Drug Dosing ml/min Est GFR ( Amer) ml/min Est GFR (Non-Af Amer) ml/min BUN/Creatinine Ratio (10-20) Glucose (70-99) mg/dl Lactate (0.4-2.0) mmol/L Calcium (8.5-10.1) mg/dl Magnesium (1.8-2.4) mg/dl Total Bilirubin (0.2-1) mg/dl AST (15-37) U/L ALT (12-78) U/L Alkaline Phosphatase (45-117) U/L C-Reactive Protein (0-0.29) mg/dl Total Protein (6.4-8.2) gm/dl Albumin (3.4-5.0) gm/dl Globulin (2.5-4.0) gm/dl Albumin/Globulin Ratio (0.9-2) Procalcitonin (0-0.5) ng/ml Urine Color Yellow Urine Appearance Clear (Clear) Urine pH 7.0 (4.5-7.5) Ur Specific [place] 1.003 (1.000-1.030) Urine Protein Negative (Negative) Urine Glucose (UA) Negative (Negative) Urine Ketones Negative (Negative) Urine Blood Negative (Negative) Urine Nitrite Negative (Negative) Urine Bilirubin Negative (Negative) Urine Urobilinogen Negative (Negative) Ur Leukocyte Esterase Negative (Negative) COVID-19 Eval Order Covid19 at [facility] SARS-CoV-2 (PCR) NEGATIVE (Negative) MDM Narrative Prior records reviewed and summarized as above. Triage Nursing notes reviewed. Additional history obtained from nursing. The patient's history was concerning for swelling and redness of the skin. Differential diagnosis: Etiologies such as septic knee, prepatellar cellulitis, cellulitis, abscess, MRSA infection, DVT, necrotizing fasciitis, dermatitis, drug eruption, as well as others were entertained.. Physical examination: Septic joint ER treatment provided: Vancomycin, Rocephin, Ativan, Zofran On reassessment the patient felt better. Diagnostics interpreted by me: The labs revealed no leukocytosis Consultation: A consultation was placed with the hospitalist. The case was discussed and diagnostics were reviewed. The patient was evaluated in the ER for further treatment. This appears to be concerns for septic joint. Patient started on IV antib iotics. Medicine was consulted. She will be admitted. Due to the overlying cellulitis and abrasion, I did opt to defer the joint aspiration to orthopedics. By the evaluation outlined above emergent etiologies such as abscess, necrotizing fasciitis, DVT, as well as others were deemed relatively unlikely. The chart was completed utilizing [employer] Speech voice recognition software. Grammatical errors, random word insertions, pronoun errors, and incomplete sentences are an occassional consequence of this system due to software limitations, ambient noise, and hardware issues. Any formal questions or concerns about the content, text, or information contained within the body of this dictation should be directly addressed to the physician medical technician assistant for clarification. The pt informed about the findings as listed above. All questions were answered and pleased with the treatment. Impression & Plan Septic arthritis of knee, left Discharge Plan Visit Data Chief Complaint: Knee Injury/Pain Stated Complaint: L KNEE PAIN ED Provider: Clay Delong ED Midlevel Provider: Rowena Bocanegra Discharge Problem: Septic arthritis of knee, left Patient Disposition: Admitted As Inpatient Condition: Good Discharge Instructions Interventions: ED Discharge Assessment Last Done: 07/02/21 01:31 Forms Stand Alone Forms: My [facility] [employer] Prescriptions Prescriptions: No Action (DME) Oxygen Home Liters Per Minute See Dose Instructions .ROUTE .MEDSUPPLY Qty: 1 RF: 0 venlafaxine 75 mg capsule,extended release 24hr 75 mg PO DAILY RF: 0 primidone 50 mg tablet See Rx Instructions .ROUTE .COMPLEX RF: 0 prazosin 1 mg capsule 1 mg PO HS RF: 0 progesterone micronized [Prometrium] 100 mg capsule 100 mg PO DAILY 90 Days Qty: 90 RF: 3 estradiol 0.05 mg/24 hr patch semiweekly 1 patch transdermal .COMPLEX Qty: 24 RF: 3 lamotrigine 150 mg tablet 150 mg PO AMPM RF: 0 cetirizine 10 mg tablet 10 mg PO DAILY RF: 0 triamterene-hydrochlorothiazid 37.5-25 mg tablet 0.5 tab PO QAM RF: 0 montelukast 10 mg tablet 10 mg PO HS RF: 0 lorazepam 1 mg tablet 1 mg PO TID PRN (Reason: Anxiety) RF: 0 budesonide-formoterol [Symbicort] 160-4.5 mcg/actuation HFA aerosol inhaler 2 puff INHALATION BID RF: 0 venlafaxine 150 mg capsule,extended release 24hr 150 mg PO DAILY RF: 0 albuterol sulfate 90 mcg/actuation HFA aerosol inhaler 1 - 2 puff INHALATION Q6 PRN (Reason: Wheezing) RF: 0 ondansetron 4 mg tablet,disintegrating 4 mg PO Q8 PRN (Reason: nausea and vomiting) RF: 0 rabeprazole 20 mg tablet,delayed release (DR/EC) 20 mg PO BID RF: 0 levothyroxine 125 mcg tablet 125 mcg PO DAILYBB RF: 0 bupropion HCl 300 mg tablet extended release 24 hr 300 mg PO QAM RF: 0 bupropion HCl 150 mg tablet extended release 24 hr 150 mg PO QAM RF: 0 oxycodone-acetaminophen [Percocet] 5-325 mg tablet 1 tab PO Q6H PRN (Reason: pain) Qty: 12 RF: 0 Referrals Referrals: Sheldon Medel MD [Primary Care Provider] - Discharge Problem: Septic arthritis of knee, left Qualifiers: Septic arthritis organism: due to unspecified organism Qualified Code(s): M00.9 - Pyogenic arthritis, unspecified
[2021-07-02] MEDS ORDERED: PRAZOSIN HCL 1 MG CAP PO STA (01:32)
[2021-07-02] MEDS ORDERED: POTASSIUM CHLORIDE 40 MEQ in SODIUM CHLORIDE 0.9% 1000ML 1,000 ML IV SCH (02:04)
[2021-07-02] MEDS ORDERED: MONTELUKAST SODIUM 10 MG TABLET PO SCH (02:04)
[2021-07-02] MEDS ORDERED: oxyCODONE HCL IR 5 MG TAB (IMMEDIATE RELEASE) PO PRN (02:04)
[2021-07-02] MEDS ORDERED: ALBUT/IPRATROP 3MG/0.5MG NEB 3 ML VIAL NEB PRN (02:04)
[2021-07-02] MEDS ORDERED: PROMETHAZINE HCL 12.5 MG in SODIUM CHLORIDE 0.9% 50 ML IV PRN (02:04)
[2021-07-02] MEDS ORDERED: MAGNESIUM SULFATE / D5W 1 GM/100 ML BAG IV ONE (02:04)
[2021-07-02] MEDS ORDERED: ACETAMINOPHEN 325 MG TAB PO PRN (02:04)
[2021-07-02] MEDS ORDERED: MoRPHine SULFATE 4 MG/ML 1 ML CARP\\VIAL IV PRN (02:04)
[2021-07-02] MEDS: LORazepam 0.5 MG/1 ML VIAL IV PRN ×2 (02:39→13:00)
[2021-07-02] MEDS ORDERED: OPTIRAY 320 100ml IV ONE (02:42)
[2021-07-02] MEDS: lamoTRIgine 100 MG TAB PO SCH ×2 (03:06→09:50)
[2021-07-02] MEDS ORDERED: LEVOTHYROXINE SODIUM 125 MCG TABLET PO SCH (06:30)
[2021-07-02] MEDS ORDERED: VENLAFAXINE HCL XR 75 MG CAPXR PO SCH (09:00)
[2021-07-02] MEDS ORDERED: FLUTICASONE/VILANTEROL 200/25MCG 14 PUFFS/INHALER INH SCH (09:00)
[2021-07-02] MEDS ORDERED: PANTOprazole 40 MG TAB PO SCH (09:00)
[2021-07-02] MEDS ORDERED: buPROPion XL 150 MG TABCR PO SCH (09:00)
[2021-07-02] MEDS ORDERED: VENLAFAXINE HCL XR 150 MG CAPXR PO SCH (09:00)
[2021-07-02] MEDS ORDERED: CETIRIZINE HCL 10 MG TABLET PO SCH (09:00)
[2021-07-02] MEDS ORDERED: buPROPion XL 300 MG TABCR PO SCH (09:00)
[2021-07-02 09:24] LABS: Basophils # (auto) 0.02 K/uL (0-0.2); Basophils % (auto) 0.4 %; Eosinophils # (auto) 0.04 K/uL (0-0.5); Eosinophils % (auto) 0.7 %; Hematocrit (blood only) 37.1 % (37-47); Hemoglobin 12.1 g/dL (12.0-16.0); Immature Granulocytes # (auto) 0.01 K/uL (0.00-0.02); Immature Granulocytes % (auto) 0.2 %; Lymphocytes # (auto) 1.46 K/uL (1.2-3.4); Lymphocytes % (auto) 26.6 %; Mean Corpuscular Hemoglobin 32.3 pg (25-34); Mean Corpuscular Hgb Conc 32.6 g/dL (32-36); Mean Corpuscular Volume 98.9 fL (80-100); Mean Platelet Volume 10.6 fL (7.4-10.4); Monocytes # (auto) 0.62 K/uL (0.11-0.59); Monocytes % (auto) 11.3 %; Neutrophils # (auto) 3.34 K/uL (1.4-6.5); Neutrophils % (auto) 60.8 %; Platelet Count 254 K/uL (130-400); RDW Coefficient of Variation 14.5 % (11.5-14.5); RDW Standard Deviation 52.5 fL (36.4-46.3); Red Blood Count 3.75 M/uL (4.2-5.4); White Blood Count 5.49 K/uL (4.8-10.8)
[2021-07-02] MEDS: PRIMIDONE 50 MG TAB PO SCH ×2 (09:51→13:02)
--- NOTE | 2021-07-02 10:02 | XRay Report ---
XR wrist LT min 3V routine CLINICAL HISTORY: worsening L wrist pain COMPARISON: June 03, 2021 DISCUSSION: No acute fracture or dislocation seen. Osseous mineralization is preserved. No blastic or lytic lesions are demonstrated. Negative ulnar variance and mild narrowing of radiocarpal joint is seen, could represent degenerative process. Mild soft tissue edema is demonstrated. IMPRESSION: No acute fracture or dislocation. ACT 112: Negative or not required by law. The above report was generated using voice recognition software. It may contain grammatical, syntax o r spelling errors. Electronically signed by: Taylor Dickson DO 07/02/2021 10:01 AM
--- NOTE | 2021-07-02 10:21 | CT Scan Report ---
CT knee LT w con CT DOSE: 215.95 mGy.cm CLINICAL HISTORY: L knee swelling TECHNIQUE: A dose lowering technique was utilized adhering to the principles of ALARA. COMPARISON STUDY: June 09, 2021 FINDINGS: Interval enlargement of the subcutaneous collection at the anterior medial aspect of the knee which i s extending inferiorly to the subcutaneous soft tissue of the anterior goncalves, is measuring 10.8 x 3.2 cm in axial image 89 and 12.1 cm on sagittal reconstruction. There is mild peripheral enhancement and no definite areas of gas collection is seen within this lesion which most likely representing hemato ma however abscess formation cannot be completely ruled out. No acute fracture or dislocation seen. Mild osteophytes are seen at bilateral femoral condyle and tib ial plateau likely representing degenerative process. IMPRESSION: 1. No acute fracture dislocation. 2. Mild interval enlargement of the rim-enhancing fluid collection within subcutaneous soft tissue a t the region of the anterior knee. Differential diagnosis include chronic hematoma however infected c ollection/abscess cannot be completely ruled out. ACT 112: Negative or not required by law. The above report was generated using voice recognition software. It may contain grammatical, syntax o r spelling errors. Electronically signed by: Taylor Dickson DO 07/02/2021 10:19 AM
[2021-07-02 10:34] LABS: BUN Creatinine Ratio 13.1 (10-20); Calcium 8.3 mg/dl (8.5-10.1); Creatinine Clr Calc Pharmacy 84.7 ml/min; Est GFR (African American) 86.3 ml/min; Est GFR (Non-African American) 74.5 ml/min; Potassium 3.9 mmol/L (3.5-5.1)
[2021-07-02] MEDS ORDERED: DOXYCYCLINE HYCLATE 100 MG CAP PO SCH (14:00)
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
--- NOTE | 2021-07-02 17:36 | Electrocardiogram Report ---
Test Reason : Blood Pressure : / mmHG Vent. Rate : 075 BPM Atrial Rate : 075 BPM P-R Int : 156 ms QRS Dur : 090 ms QT Int : 406 ms P-R-T Axes : -14 056 027 degrees QTc Int : 453 ms Normal sinus rhythm Normal ECG When compared with ECG of 04-NOV-2019 13:45, No significant change was found Confirmed by Williams Barajas ([id number]) on 07/02/2021 5:35:56 PM Referred By: REFERRED SELF Confirmed By:Ritesh Barajas
[2021-07-02] MEDS ORDERED: PRAZOSIN HCL 1 MG CAP PO SCH (21:00)
[2021-07-02] MEDS ORDERED: PRIMIDONE 50 MG TAB PO SCH (21:00)
[2021-07-02] MEDS ORDERED: cefTRIAXone SODIUM 2,000 MG in DEXTROSE 5% 50 ML IV SCH (22:00)
== END 2021-07-02 17:59 | disposition home or self-care (01) | DRG 605 ==
LOC: ED 21:34 → 3W 07-02 00:41

== ENCOUNTER 2025-02-14 07:54 | Observation (INO) ==
--- NOTE | 2025-01-27 14:20 | PAT Medication Instructions ---
Medication Instructions Date of Service January 27, 2025 Home Medications Medication Instructions Recorded albuterol sulfate 2.5 mg/3 mL 2.5 mg (3 mL) inhalation Q6H PRN 05/02/24 (0.083 %) solution for nebulization shortness of breath or wheezing #75 mL albuterol sulfate 90 mcg/actuation 2 inh inhalation QID PRN shortness 09/24/24 aerosol inhaler of breath or wheezing #8.5 grams lorazepam 1 mg tablet 1 mg PO TID PRN Anxiety montelukast 10 mg tablet (Singulair) 10 mg PO HS triamterene 37.5 mg-hydrochlorothiazide 25 mg tablet (Maxzide-25mg) 0.5 tab PO QAM levothyroxine 125 mcg tablet 125 mcg PO QAM bupropion HCl 150 mg 24 hr tablet, extended release 150 mg PO QAM bupropion HCl 300 mg 24 hr tablet, extended release (Wellbutrin XL) 300 mg PO QAM albuterol sulfate 2.5 mg/3 mL (0.083 %) solution for nebulization 2.5 mg (3 mL) inhalation Q6H PRN shortness of breath or wheezing venlafaxine 75 mg capsule,extended release 24 hr 75 mg PO QAM albuterol sulfate 90 mcg/actuation aerosol inhaler 2 inh inhalation QID PRN shortness of breath or wheezing primidone 50 mg tablet (Mysoline) 100 mg PO BID azelastine 0.05 % eye drops 1 drp ophthalmic (eye) BID PRN Eye Irritation docusate sodium 50 mg capsule 50 mg PO BID lamotrigine 200 mg tablet 200 mg PO BID venlafaxine 150 mg capsule,extended release 24 hr 150 mg PO QAM budesonide 160 mcg-glycopyr 9 mcg-formot 4.8 mcg/actuation HFA inhaler (Breztri Aerosphere) 2 inh inhalation BID ferrous sulfate 325 mg (65 mg iron) tablet (Feosol) 325 mg PO QPM pantoprazole 40 mg tablet,delayed release 40 mg PO QPM DO NOT take the morning of surgery triamterene 37.5 mg-hydrochlorothiazide 25 mg tablet (Maxzide-25mg) 0.5 tab PO QAM docusate sodium 50 mg capsule 50 mg PO BID Take morning of surgery With a small sip of water, OTHERWISE NOTHING TO EAT OR DRINK AFTER MIDNIGHT: lorazepam 1 mg tablet 1 mg PO TID PRN Anxiety (if needed) levothyroxine 125 mcg tablet 125 mcg PO QAM bupropion HCl 150 mg 24 hr tablet, extended release 150 mg PO QAM bupropion HCl 300 mg 24 hr tablet, extended release (Wellbutrin XL) 300 mg PO QAM albuterol sulfate 2.5 mg/3 mL (0.083 %) solution for nebulization 2.5 mg (3 mL) inhalation Q6H PRN shortness of breath or wheezing (if needed) venlafaxine 75 mg capsule,extended release 24 hr 75 mg PO QAM albuterol sulfate 90 mcg/actuation aerosol inhaler 2 inh inhalation QID PRN shortness of breath or wheezing (use if needed; please bring rescue inhaler with you to hospital day of surgery if possible) primidone 50 mg tablet (Mysoline) 100 mg PO BID azelastine 0.05 % eye drops 1 drp ophthalmic (eye) BID PRN Eye Irritation (if needed) docusate sodium 50 mg capsule 50 mg PO BID lamotrigine 200 mg tablet 200 mg PO BID venlafaxine 150 mg capsule,extended release 24 hr 150 mg PO QAM budesonide 160 mcg-glycopyr 9 mcg-formot 4.8 mcg/actuation HFA inhaler (Breztri Aerosphere) 2 inh inhalation BID Take evening before surgery lorazepam 1 mg tablet 1 mg PO TID PRN Anxiety (if needed) montelukast 10 mg tablet (Singulair) 10 mg PO HS albuterol sulfate 2.5 mg/3 mL (0.083 %) solution for nebulization 2.5 mg (3 mL) inhalation Q6H PRN shortness of breath or wheezing (if needed) albuterol sulfate 90 mcg/actuation aerosol inhaler 2 inh inhalation QID PRN shortness of breath or wheezing (if needed) primidone 50 mg tablet (Mysoline) 100 mg PO BID azelastine 0.05 % eye drops 1 drp ophthalmic (eye) BID PRN Eye Irritation (if needed) docusate sodium 50 mg capsule 50 mg PO BID lamotrigine 200 mg tablet 200 mg PO BID budesonide 160 mcg-glycopyr 9 mcg-formot 4.8 mcg/actuation HFA inhaler (Breztri Aerosphere) 2 inh inhalation BID ferrous sulfate 325 mg (65 mg iron) tablet (Feosol) 325 mg PO QPM pantoprazole 40 mg tablet,delayed release 40 mg PO QPM Other Notes If you have any questions please call us at [phone] or [phone] or [phone] or [phone]
--- NOTE | 2025-01-29 10:56 | Anesthesiology Consultation ---
Date of Service January 29, 2025 Assessment & Plan (1) Encounter for pre-operative examination: Chart Review Chart Review: Acceptable Risk for Surgery (pending cardio clearance 02/06/25 and routine pulm follow up 02/12/25) and Patient NOT seen in Pre Admission Testing - Awaiting cardio clearance appt 02/06/25 at 1300 with [facility]- Cielo Love PA-C (set up due to exertion chest pain episode) - Awaiting upcoming [facility] routine pulm appt 02/12/25 Patient with history of post op SOB- follows with pulm for asthma and lung cyst; per pulm recommendations- should have "nebulized budesonide and formoterol before and after surgery to minimize risk of bronchospasm" (Patient also states she is to have CPAP possibly post op- did recommend patient bring CPAP for overnight stay and naps. Discussed with Dr. Jalloh- respiratory therapy can be consulted post op if DOS anesthesiologist feels necessary) Patient with adhesive allergy- currently following with surgeon's office and utility operator; Latex allergy rule out; will be following with utility operator in regards to adhesive allergy in order for surgeon to determine what materials can be used Per PAT appt on 01/29/25, no recent illness/disease exposures, illness related symptoms, or recent illness/disease positive tests. Will leave to surgeon's discretion if preop Covid testing needed Robotic lap hyster 11/27/23= Done under GA with Grade 1 view with MAC. Atraumatic DL x 1 (Per nursing records post op- patient had decreased SPO2 on room air- encouraged deep breathing, coughing and incentive spirometer- patient voiced she had difficulty exhaling completely; Duoneb given- O2 increased to 96-97% on RA) History Surgery Operation Date: 02/14/25 07:00 Proposed Procedures p Right Shoulder Arthroscopy, Rotator Cuff Repair with Allograft, Subacromial Decompression - Raz Hennessy MD Height/Weight Height: 5 ft 3 in Weight: 98.9 kg Allergies Allergy/AdvReac Type Severity Reaction Status Date / Time adhesive Allergy Intermediate Rash Verified 01/23/25 14:32 buspirone Allergy Intermediate BREATHING Verified 01/23/25 14:32 PROBLEMS Quinolones Allergy Mild RASH Verified 01/23/25 14:32 vancomycin Allergy Mild Rash Verified 01/23/25 14:32 fluticasone AdvReac Intermediate FUNGAL Verified 01/23/25 14:32 INFECTION prednisone AdvReac Intermediate SEVERE Verified 01/23/25 14:32 DEPRESSION Medications Home Medications Medication Instructions Recorded Confirmed Last Taken lorazepam 1 mg tablet 1 mg PO TID PRN Anxiety 11/04/19 01/23/25 11/26/23 21:00 montelukast 10 mg tablet 10 mg PO HS 11/04/19 01/23/25 11/26/23 21:00 (Singulair) triamterene 37.5 0.5 tab PO QAM 11/04/19 01/23/25 11/27/23 07:00 mg-hydrochlorothiazide 25 mg tablet (Maxzide-25mg) levothyroxine 125 mcg tablet 125 mcg PO QAM 07/01/21 01/23/25 11/27/23 07:00 bupropion HCl 150 mg 24 hr tablet, 150 mg PO QAM 07/02/21 01/23/25 11/27/23 07:00 extended release bupropion HCl 300 mg 24 hr tablet, 300 mg PO QAM 07/02/21 01/23/25 11/27/23 07:00 extended release (Wellbutrin XL) albuterol sulfate 2.5 mg/3 mL 2.5 mg (3 mL) inhalation Q6H PRN 05/02/24 01/23/25 Unknown (0.083 %) solution for nebulization shortness of breath or wheezing #75 mL venlafaxine 75 mg capsule,extended 75 mg PO QAM 06/14/24 01/23/25 Unknown release 24 hr albuterol sulfate 90 mcg/actuation 2 inh inhalation QID PRN shortness 09/24/24 01/23/25 Unknown aerosol inhaler of breath or wheezing #8.5 grams primidone 50 mg tablet (Mysoline) 100 mg PO BID 10/25/24 01/23/25 Unknown azelastine 0.05 % eye drops 1 drp ophthalmic (eye) BID PRN Eye 01/20/25 01/23/25 Unknown Irritation docusate sodium 50 mg capsule 50 mg PO BID 01/20/25 01/23/25 Unknown lamotrigine 200 mg tablet 200 mg PO BID 01/20/25 01/23/25 Unknown venlafaxine 150 mg 150 mg PO QAM 01/20/25 01/23/25 Unknown capsule,extended release 24 hr budesonide 160 mcg-glycopyr 9 2 inh inhalation BID 01/22/25 01/23/25 Unknown mcg-formot 4.8 mcg/actuation HFA inhaler (Breztri Aerosphere) ferrous sulfate 325 mg (65 mg 325 mg PO QPM 01/23/25 01/23/25 Unknown iron) tablet (Feosol) pantoprazole 40 mg tablet,delayed 40 mg PO QPM 01/23/25 01/23/25 Unknown release Past Medical History Medical History Chronic low back pain with right-sided sciatica Disc degeneration, lumbar Essential tremor Noted to mouth if jaw is open a certain way; also intermittent to arm and legs with certain pressure points Factor V Leiden carrier denies history of personal DVT/PE-follows with [facility]/onc no AC or ASA needed per patient; usually takes Lovenox post op (patient will discuss with heme and surgeon) History of anesthesia complications - with hysterectomy - had SOB- per pulm breathing treatment before and after surgery History of asthma History of hypertension Hx of gastroesophageal reflux (GERD) Hypothyroidism Lung cyst f/u dr. hdez, [facility] [place] under observation Major depression Migraine Restless leg syndrome no official diagnosis; presumed usually associated with iron deficiency - on PO supplement- symptoms resolved Sleep apnea CPAP Social anxiety disorder Temporomandibular joint disorder hx locking once ~2019 Exercise / Class Metabolic Activity III < 4 Walking/Shop/Light housework (one flight of stairs - no chest pain, mild SOB ) Past Family History Family History Family/Other Myocardial infarction Grandmother Myocardial infarction Grandfather Myocardial infarction Mother Factor V deficiency Breast cancer, Onset Age: 75 bilateral, ? Estrogen receptor positive. Sister Factor V deficiency Grandmother (Maternal) Breast cancer, Onset Age: 76 Father Family history of diabetes mellitus Other No family history of adverse response to anesthesia Denies family history of Ovarian cancer Prostate cancer Colorectal cancer Uterine cancer Past Surgical History Surgical History H/O hernia repair bilateral, groin as child H/O laparoscopy excision uterine surface endometriotic tissue H/O shoulder surgery RT biceps tear repair H/O sinus surgery 2002 History of blepharoplasty History of colonoscopy History of endometrial ablation History of esophagogastroduodenoscopy (EGD) History of hysteroscopy History of incision and drainage 01/27/22 [place] [facility] [place] History of tooth extraction Hx of breast biopsy benign Nausea and vomiting after administration of anesthetic agent severe S/P section x2 S/P cholecystectomy S/P laparoscopic hysterectomy 11/2023, with BSO Past Anesthesia History No Hx of Anesthesia Complications (with exception to post op SOB with 11/2023 hysterectomy- unsure if asthma related ) and No Family Hx of Anesthesia Complications History of PONV History of PONV (severe - usually pre treated with anti nausea medication ) and Hx of Motion Sickness Social History Smoking Status: Never smoker Do You Dip or Chew Tobacco: No Hx Alcohol Use: Yes Alcohol type: wine alcohol intake frequency: other Alcohol Intake Frequency Comment: extremely rare Hx Substance Use: No substance use type: does not use Review of Systems - Chest pain x 2 hours (occurred 3-4 weeks ago)- not significantly relieved with Ativan. Occurred with exertion. Had to slide down hill to get into house. Associated nausea. No SOB. Patient denies shortness of breath at rest reflux, cough, wheezing, palpitations. No hx of seizures, stroke, PR. No hx of blood clots or blood transfusions Physical Exam Vital Signs VITALS BP 124/80 P 95 TEMP 98.7 SP02 96% RESP 16 Constitutional no acute distress ENMT Mouth: no TMJ clicking Thyromental Distance: > or= 3.5 Finger Breadths (3.5t) Mallampati Class: I (smaller airway) Crowns to side teeth and molars Neck neck extension not limited Respiratory normal respiratory effort; no respiratory distress Auscultation: lungs clear to auscultation bilaterally; no wheezes Cardiovascular Rate/Rhythm: regular rate and regular rhythm Heart Sounds: no murmur Vessels: no carotid bruit Musculoskeletal Spine: + pain with cervical ROM (mild stiffness ) Extremities: extremities normal to inspection Psychiatric Orientation: alert Lab Results Anesthesia Preop Results Results Anesthesia Widget: WBC 5.02 K/ul (4.8-10.8) 01/29/25 Hgb 13.0 g/dl (12.0-16.0) 01/29/25 Hct 39.0 % (37.0-47.0) 01/29/25 Plt 264 K/uL (130-400) 01/29/25 Na 137 mmol/L (136-145) 01/29/25 K 3.8 mmol/L (3.5-5.1) 01/29/25 Cl 101 mmol/L (98-107) 01/29/25 CO2 30 mmol/L (21-32) 01/29/25 BUN 16 mg/dl (6-23) 01/29/25 Creat 0.72 mg/dl (0.6-1.2) 01/29/25 Glucose Level 105 mg/dl (70-99(Fasting)) H 01/29/25 PT 10.9 Seconds (9.0-12.0) 01/29/25 PTT 30 Seconds (21-31) 01/29/25 INR 1.0 (0.9-1.1) 01/29/25 Testing Electrocardiogram Date: 01/29/25 Findings: + NSR @ (93bpm) Nonspecific T wave abnormality When compared to EKG from May 29, 2024- no significant change was found per cardio Chest X-Ray Date: 08/29/24 Findings: + NAD
[~2025-02-14 07:54] MED LIST changes: -ATV/1 PO; -BUDE1SUS INH; +BUPIVACAINE 0.5 % 5 MG/1 ML PF 10ML VIAL ONE; -BUPRTAB51 PO; -DILT120T8 PO; -ERGO500037 PO; -FEXO1TAB49 PO; -GUAI1TAB55 PO; -IPRA1AER2 INH; -IPRASOL4 INH; -LEVO112T2 PO; -MAGN250T3 PO; -OMAL150S SQ; -RABE20TA5 PO; +SODIUM CHLORIDE 0.9% PF INJ 10 ML VIAL ONE; -SRVDIN60 INH; -TRIA37.5 PO; -VENL150C56 PO
[2025-02-14] MEDS: LR 15ML/HR IV SCH (08:35)
[2025-02-14] MEDS: LR 60ML/HR IV SCH (08:45)
[2025-02-14] MEDS: ACETAMINOPHEN 500 MG TAB PO SCH ×2 (08:46→14:48)
[2025-02-14] MEDS ORDERED: LIDOCAINE 2% 2 ML VIAL/AMP(20MG/ML) INFIL ONE (09:31)
[2025-02-14] MEDS ORDERED: DEXAMETHASONE SOD INJ 4 MG/ML VIAL ONE (09:31)
[2025-02-14] MEDS ORDERED: PROPOFOL IV EMULSION 10 MG/ML 20 ML VIAL IV ONE (09:31)
[2025-02-14] MEDS ORDERED: ONDANSETRON INJ 2 MG/ML 2 ML VIAL ONE (09:31)
[2025-02-14] MEDS ORDERED: MIDAZOLAM HCL 1 MG/ML 2ML VIAL ONE (09:32)
[2025-02-14] MEDS ORDERED: fentaNYL citrate PF 100 MCG/2 ML VIAL ONE (09:32)
[2025-02-14] MEDS ORDERED: ROCURONIUM BROMIDE 10 MG/ML 5 ML VIAL IV ONE ×2 (09:35→11:43)
[2025-02-14] MEDS ORDERED: fentaNYL citrate PF 100 MCG/2 ML VIAL IV PRN (09:51)
[2025-02-14] MEDS ORDERED: LABETALOL HCL IV 5 MG/ML 20ML IV PRN (09:51)
[2025-02-14] MEDS ORDERED: ATROPINE SULFATE 0.1 MG/ML 10ML SYR IV PRN (09:51)
[2025-02-14] MEDS ORDERED: ONDANSETRON INJ 2 MG/ML 2 ML VIAL IV PRN ×2 (09:51→13:15)
[2025-02-14] MEDS ORDERED: PROMETHAZINE HCL 6.25 MG in SODIUM CHLORIDE 0.9% 50 ML IV PRN (09:51)
[2025-02-14] MEDS: SCOPOLAMINE 1 MG/72 HR TDSY PATCH TD ONE ×2 (09:51→09:56)
[2025-02-14] MEDS ORDERED: KETOROLAC 30 MG/ML VIAL IV PRN (09:51)
[2025-02-14] MEDS: ALBUTEROL 0.083% NEBU SOLN 3 ML VIAL NEB STA ×2 (09:53→13:21)
--- NOTE | 2025-02-14 10:01 | History & Physical Bridge Note ---
Date of Service February 14, 2025 History & Physical Bridge Note I have examined the patient, reviewed the History & Physical and in the interval since the performance of the History & Physical I have noted the following changes of clinical significance: no changes noted
[2025-02-14] MEDS: TRANEXAMIC ACID 1,000 MG **IV Pre-op IV SCH (10:12)
[2025-02-14] MEDS: ceFAZolin 2000MG 2,000 MG/15 ML SYR IV SCH ×2 (10:24→17:34)
[2025-02-14] MEDS ORDERED: PHENYLEPHRINE 100MCG/ML 5ML SYR ONE (11:32)
[2025-02-14] MEDS ORDERED: SUGAMMADEX SODIUM 200 MG/2 ML VIAL IV ONE ×2 (12:42→13:04)
[2025-02-14] MEDS ORDERED: bisacodyL 10 MG SUPP PR PRN (13:15)
[2025-02-14] MEDS ORDERED: HYDROmorphone INJ 0.5 MG/0.5 ML SYR IV PRN (13:15)
[2025-02-14] MEDS ORDERED: NALOXONE HCL 0.4 MG/1 ML VIAL/CARP IV PRN (13:15)
[2025-02-14] MEDS ORDERED: MAGNESIUM HYDROXIDE SUSP 30 ML UDC PO PRN (13:15)
[2025-02-14] MEDS ORDERED: METOCLOPRAMIDE HCL INJ 5 MG/ML 2 ML VIAL IV PRN (13:15)
[2025-02-14] MEDS ORDERED: diphenhydrAMINE Capsule 25 MG CAP PO PRN (13:15)
[2025-02-14] MEDS ORDERED: ALBUTEROL HFA 8 GM INHALER INH PRN (13:18)
--- NOTE | 2025-02-14 13:18 | Operative Report ---
PG Post Operative Report Pre & Post Diagnosis Operation Date: 02/14/25 10:05 Pre-Op Diagnosis: Complete rotator cuff tear of right shoulder Post-Op Diagnosis: Complete rotator cuff tear of right shoulder I identified the patient and participated in the time-out.: Yes Procedure Operation Date: 02/14/25 10:05 Actual Procedures p Right Shoulder Arthroscopy, extensive debridement, infraspinatus and supraspinatus rotator Cuff Repair(Right) - Raz Hennessy MD Surgeon Raz Hennessy MD Jackhammer Operator Natasha Desouza PA-C Estimated Blood Loss 25 Findings See Below EUA demonstrated full passive range of motion. Arthroscopy revealed a full-thickness tear of the supraspinatus and infraspinatus retracted over the humeral head articular cartilage. The subscapularis was intact. Previous biceps tenotomy and tenodesis. Extensive adhesions and contracture to the articular capsule as well as in the subacromial space to the retracted tendon, requiring extensive debridement. There was sufficient tissue for near complete anatomic repair and footprint coverage, using a 5 anchor double row repair with linked medial seal. The medial row had Arthrex 2.6 mm knotless RC fiber tacks, with linked medial seal with knotless mechanisms, lateral cuff margin luggage tag fiber links with suture tapes taken laterally into 2 Arthrex 4.75 bio composite swivel lock anchors. Specimens None Anesthesia Type General Regional Complications none Disposition Accompanied Patient To Recovery: No Disposition: Recovery Room Indications 59-year-old female presented with shoulder pain and rotator cuff dysfunction. She had a previous subacromial decompression and biceps tenodesis over 10 years ago. Physical exam and advanced imaging supported the diagnosis of rotator cuff tear, and arthroscopic intervention to restore shoulder function was offered. We discussed the risks and benefits, as outlined in the preoperative note. Informed consent was obtained in the clinic. Description of Procedure On the day of surgery, the patient was greeted in the preoperative holding area. The informed consent was reviewed and confirmed by myself and the patient. The patient identified the surgical site, and it was marked by me. The patient was then turned over to anesthesia. Anesthesia performed a liposomal ropivacaine regional anesthetic block with excellent effect. Patient was then taken to the operating room and placed upon the OR table. Anesthesia was induced. The airway was secured. The patient was positioned in the beachchair with all bony prominences well- padded. The operative extremity was then prepped and draped in usual sterile fashion for beachchair arthroscopy with Arthrex Trimano arm positioner. Surgical timeout was called by the circulating nurse and verified all present. Antibiotics had been infused, and equipment was available and functional. We initiated the procedure by creating a standard posterior viewing portal for beachchair arthroscopy. Cursory diagnostic arthroscopy was carried out. Thorough diagnostic arthroscopy was carried out. The superior labrum had degenerative fraying. The inferior, posterior and anterior labrum also had abundant synovitis which was extensively debrided. The articular cartilage was intact with a grade 1 diffuse softening throughout. There is a high degree of synovitis throughout the articular capsule and along the labrum, requiring debridement using a motorized shaver. There were adhesions in and around the subscapularis tendon. These were debrided. This revealed an intact subscapularis insertion. She had evidence of bicep impingement on the humeral head with some fraying around the biceps sling, but there was a previous biceps tenodesis. There was an obvious full-thickness tear through the superior rotator cuff tissue with retraction allowing direct visualization into the subacromial space. Given the full-thickness superior rotator cuff tear, I established a lateral portal using a spinal needle for localization. Extensive debridement was carried out using a motorized shaver to the torn edges of the superior rotator cuff tissue and along the subscapularis. The cuff grasping device was used to pull tension on the retracted supraspinatus. This opened up the rotator interval to establish an anterior working portal. The debris was continued t hrough the anterior portal with a motorized shaver as previously described. We then exited the intra-articular space and entered the subacromial space using a trocar. Motorized shaver was introduced and a revision subacromial bursectomy was carried out to improve visualization. There were adhesions along the anterior posterior subdeltoid gutters were debrided using motorized shaver and [place] RF wand. This released the rotator cuff along the superior margin. The [place] wand was then used on the capsular side of the retracted tissue to ensure no additional adhesions that would limit excursion for repair. Once we have adequate visualization of the rotator cuff we evaluated the bursal aspect. We then changed to the lateral viewing portal. Switching stick was used to assist with this. Spinal needle was then used to create an accessory lateral viewing portal. We then cannulated the original lateral portal with an Arthrex Belkis cannula. Debridement of the rotator cuff insertion was carried out. We debrided back generative rotator cuff tissue back to stable tissue margins. The greater tuberosity footprint was then debrided of soft tissue. A arthroscopic zak, motorized shaver, and curette was used to expose bleeding bone. We then percutaneously inserted self punching 2.6 mm FiberTack RC anchor with knotless mechanism and suture tape into the reyna-medial row position on the articular cartilage margin which was visible. Spinal needle was used to locate and then deploy a percutaneously inserted second and third 2.6 mm fiber tack RC anchor to the middle and posterior position. All suture tails were brought back out of the percutaneous insertion points for suture management. An Arthrex scorpion was then used to pass a fiber link suture through the posterior and anterior cuff tissue. The fiber link was used to pass the swedged fiber tapes from the anchor as well as knotless mechanism stitches. The cuff grasper was used to reduce the tissue over the footprint while a linked medial seal was performed between the anchors using the knotless mechanisms. 2 additional cinch luggage tag stitches were added to anterolateral and posterolateral limbs of the cuff tissue to be secured in the respective lateral anchors. The tails were then brought back out the lateral portal. We used a Arthrex Belkis cannula to provisionally reduce the tissue using the suture tails. We chose our spot for the lateral row anchor based on a quality reduction of the tissue. The punch was used to create the hole for the anchor. A 4.75 mm bio composite swivel lock anchor was then loaded with these tails and deployed into its socket under arthroscopic visualization. This was repeated for the posterior lateral anchor position to complete the repair. The tear repair was then evaluated. Had good reduction of tissue and complete coverage of the footprint. There were no dogear formations. The remaining knotless mechanism was used to connect anterior to posterior medi al positions for further compression. The subacromial space was then thoroughly irrigated and evacuated of arthroscopic fluid. Intra-articular exam demonstrated near anatomic reduction of the tissue. Joint was deflated of arthroscopic fluid as well. All instruments were then removed including the cannulas. Wounds were approximated using 3-0 Monocryl suture in a buried knot fashion, backed up by Steri-Strips. The wounds are dressed sterile Xeroform, sterile gauze and ABD. Ioban tape was then used to secure the final dressing. The arm was placed in a standard postoperative sling. Patient tolerated the procedure well, was extubated in the operating room without complication, and transported the PACU in stable condition. Disposition: Patient will undergo routine postoperative pain management at home and will initiate physical therapy before the 2-week follow-up appointment. The patient will follow a large rotator cuff repair physical therapy protocol. They be nonweightbearing for 6 weeks. They remain in the sling for 4 weeks. Follow- up will occur in 10 to 14 days in the orthopedic clinic. Physician switchboard operator assistant attestation: Natasha Desouza PA-C was present and scrubbed for the duration of the case. Skilled was essential to prepping/draping, patient positioning, retraction, suture management, anchor placement, and assistance with wound closure. I attest to the content of the Intraoperative Record and any orders documented therein. Any exceptions are noted below.
--- NOTE | 2025-02-14 14:30 | Anesthesiology Progress Note ---
Date of Service February 14, 2025 Anesthesia Post Procedure Vital Signs Vital Signs: Temp Pulse Pulse Resp BP Pulse Ox O2 Del Method 02/14/25 14:10 36.4 C L 88 16 148/88 H 95 Room Air 02/14/25 13:50 36.3 C L 88 20 142/89 H 97 Room Air 02/14/25 13:40 87 18 165/82 H 99 Nasal Cannula 02/14/25 13:30 91 H 18 142/89 H 100 Nebulizer 02/14/25 13:20 93 H 17 144/101 H 99 Oxymask 02/14/25 13:13 36.0 C L 96 H 17 151/100 H 98 Oxymask 02/14/25 09:54 80 20 97 Room Air 02/14/25 08:30 36.9 C 92 H 20 153/95 H 95 Room Air O2 Flow Rate 02/14/25 14:10 02/14/25 13:50 02/14/25 13:40 4 02/14/25 13:30 7 02/14/25 13:20 10 02/14/25 13:13 10 02/14/25 09:54 02/14/25 08:30 Pain Intensity Right Shoulder: Pain Intensity: 1 Transfer of Care Handoff Completed per policy Notes Mental Status: alert / awake / arousable Patient Amnestic to Procedure: Yes Nausea / Vomiting: adequately controlled Pain: adequately controlled Airway Patency, RR, SpO2: stable & adequate BP & HR: stable & adequate Hydration State: stable & adequate Anesthetic Complications: no major complications apparent
[2025-02-14] MEDS: ALBUTEROL 0.083% NEBU SOLN 3 ML VIAL ONE (14:37)
[2025-02-14] MEDS: BUPIVACAINE LIPOSOME 1.3% 133 MG/10 ML VIAL ONE (14:37)
[2025-02-14] MEDS ORDERED: CHECK SCOPOLAMINE PATCH PLACEMENT SCH (16:00)
[2025-02-14] MEDS: ALBUTEROL 0.083% NEBU SOLN 3 ML VIAL INH PRN (19:37)
[2025-02-14] MEDS ORDERED: NON-FORMULARY MEDICATION (Budesonide-Glycopyr-Formoterol [Breztri Aerosphere] 160-9-4.8 mc INH SCH (21:00)
[2025-02-14] MEDS: MONTELUKAST SODIUM 10 MG TABLET PO SCH (21:54)
[2025-02-14] MEDS: DOCUSATE SODIUM 100 MG CAP PO SCH (21:54)
[2025-02-14] MEDS: PANTOprazole 40 MG TAB PO SCH (21:54)
[2025-02-14] MEDS: SENNA 8.6 MG TAB PO SCH (21:54)
[2025-02-14] MEDS: lamoTRIgine 100 MG TAB PO SCH (21:54)
[2025-02-14] MEDS: FERROUS SULFATE 325 MG TAB PO SCH (21:54)
[2025-02-14] MEDS: PRIMIDONE 50 MG TAB PO SCH (21:54)
[2025-02-14] MEDS: LORazepam 1 MG TAB PO PRN (23:30)
[2025-02-15] MEDS: LEVOTHYROXINE SODIUM 125 MCG TABLET PO SCH (05:28)
[2025-02-15] MEDS: oxyCODONE HCL IR 5 MG TAB (IMMEDIATE RELEASE) PO PRN (05:30)
[2025-02-15] MEDS: FLUTICASONE FUROATE 200MCG 14 PUFFS/INHALER INH SCH (08:47)
[2025-02-15] MEDS: UMECLIDINIUM/VILANTEROL 62.5/25MCG 7 PUFFS/INHALER INH SCH (08:47)
[2025-02-15] MEDS: MULTIVITAMIN TAB PO SCH (08:48)
[2025-02-15] MEDS: buPROPion XL 300 MG TABCR PO SCH (08:50)
[2025-02-15] MEDS: VENLAFAXINE HCL XR 75 MG CAPXR PO SCH (08:50)
[2025-02-15] MEDS: TRIAMTERENE/HCTZ 37.5/25MG TAB PO SCH (08:50)
[2025-02-15] MEDS: buPROPion XL 150 MG TABCR PO SCH (08:50)
[2025-02-15] MEDS: VENLAFAXINE HCL XR 150 MG CAPXR PO SCH (08:50)
--- NOTE | 2025-02-15 09:52 | Orthopedic Progress Note ---
Date of Service February 15, 2025 Assessment & Plan (1) ANDREEA (obstructive sleep apnea): (2) Complete rotator cuff tear or rupture of right shoulder, not specified as traumatic: (3) Factor V Leiden carrier: (4) Asthma: Plan Postop day 1 from arthroscopic rotator cuff repair. Admitted for concerns of asthma and ANDREEA, as well as living independently. She demonstrated confidence moving about the room this morning. Pain is well-controlled. -Will appreciate PT and OT evaluation for safety for discharge. History of frequent falls. -Appreciate case management assistance with discharge planning. Can utilize mobile outpatient PT as well, such as [facility] or [facility] -Plan for discharge today after evaluations. Follow-up as already scheduled for 10 to 14 days postop. Dressing can come down postop day 3. Subjective Reports tolerable pain with Tylenol. States she was up and about the room confidently. 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 No issues with appetite. Sensation has returned to her hand. Review of Systems All systems reviewed & are unremarkable except as noted in HPI & below. Physical Exam Right upper extremity: Dressing is clean and dry and intact. Sling is well fit. Minimal edema to the arm. Full motor to her hand. Constitutional WD/WN, vitals as above no acute distress and not intoxicated appearing Respiratory normal respiratory effort; no labored breathing Cardiovascular Extremities: normal capillary refill Results & Data Results & Data Laboratory Results . Diagnostic Findings . PG Care Time/CCT Total # of Minutes Spent Total Time Spent with Patient: Total time spent is greater than 50% in coordination of care (as documented) at patient's floor/unit and/or counseling patient: Coding Level of Care Code 39414 Post Operative Follow-Up Diagnoses ANDREEA (obstructive sleep apnea) G47.33 Nontraumatic complete tear of right rotator cuff M75.121 Rotator cuff tear trauma status: nontraumatic Factor V Leiden carrier D68.51 Asthma J45.909 Asthma complication type: unspecified Asthma persistence: unspecified Asthma severity: unspecified severity (2) Complete rotator cuff tear or rupture of right shoulder, not specified as traumatic Rotator cuff tear trauma status: nontraumatic Qualified Code(s): M75.121 - Complete rotator cuff tear or rupture of right shoulder, not specified as traumatic (4) Asthma Asthma complication type: unspecified Asthma persistence: unspecified Asthma severity: unspecified severity Qualified Code(s): J45.909 - Unspecified asthma, uncomplicated
[2025-02-15 11:38] VITALS: BP 146/80; PULSE 90; RESP 16; TEMP 97.9; O2SAT 94
--- NOTE | 2025-02-17 15:13 | Discharge Summary ---
Date of Service February 17, 2025 Admission HPI (Per Admitting) 59-year-old female presented with shoulder pain and rotator cuff dysfunction. She had a previous subacromial decompression and biceps tenodesis over 10 years ago. Physical exam and advanced imaging supported the diagnosis of rotator cuff tear, and arthroscopic intervention to restore shoulder function was offered. We discussed the risks and benefits, as outlined in the preoperative note. Informed consent was obtained in the clinic. Admission Exam (Per Admitting) Objective: Gen: Appears well, in no acute distress. Right Shoulder: Exam has not changed much. There are still some signs of pseudoparalysis, significant weakness. She has external rotation lag. Negative Hornblower's. Guarded but near full passive range of motion to the glenohumeral joint. Neurovascularly intact. Principal Diagnosis Same as "Discharge Diagnosis" noted below under Discharge Instructions. Discharge Exam Right upper extremity: Dressing is clean and dry and intact. Sling is well fit. Minimal edema to the arm. Full motor to her hand. Discharge Data Procedures Performed Operation Date: 02/14/25 10:05 Actual Procedures p Right Shoulder Arthroscopy, Rotator Cuff Repair(Right) - Raz Hennessy MD Ordered Studies 02/14/25 05:00 US - OR guided needle placemen Routine Hospital Course (1) History of rotator cuff surgery: Postop day 1 from arthroscopic rotator cuff repair. Admitted for concerns of asthma and ANDREEA, as well as living independently. She demonstrated confidence moving about the room this morning. Pain is well-controlled. -Will appreciate PT and OT evaluation for safety for discharge. History of frequent falls. -Appreciate case management assistance with discharge planning. Can utilize mobile outpatient PT as well, such as [facility] or [facility] -Plan for discharge today after evaluations. Follow-up as already scheduled for 10 to 14 days postop. Dressing can come down postop day 3. PG Care Time/CCT Total # of Minutes Spent Total Time Spent with Patient: Total time spent is greater than 50% in coordination of care (as documented) at patient's floor/unit and/or counseling patient: Discharge Plan Discharge Items Patient Disposition: Home - Self-Care Reason For Visit: Nontraumatic Complete Tear of Right Rotator Cuff, Discharge Diagnosis: s/p right rotator cuff repair Activity: Per Instructions section Non-emergency contact: Surgeon Call non-emergency contact if: your pain is not controlled, you have a fever and your temperature is above 101.5 Follow-up/Referrals: Raz Hennessy MD [Surgeon] - Sheldon Medel MD [Primary Care Provider] - Diet: Regular Addtl Attending Provider Instructions: Raz Hennessy M.D. [facility] [address] [place] [address] SHOULDER PROCEDURES WOUND CARE: Leave your dressing in place and keep the area clean and dry. After 3 days, you may remove your dressing. DO NOT REMOVE ANY SUTURES. DO NOT REMOVE THE PAPER TAPE STRIPS THAT ARE CROSSING YOUR INCISION THEY WILL FALL OFF GRADUALLY IN 2-3 WEEKS. After removing your dressing, you may begin to shower with the paper tape strips in place. Do not soak the incision. Allow gentle soap and water to run over the wound(s) and pat dry. Please cover the incision(s) with a clean, dry dressing, as needed. Do not use any ointments or topical medications unless directed by your surgeon. Do not submerse the incisions in water no pools, oceans, lakes, jacuzzis, bathtubs, etc for at least 3 weeks. ACTIVITY: Remain in the sling provided. Do not lift anything heavier than a cup of coffee with that hand. You may type or use a keyboard as tolerated. You may come out of the sling for careful hygiene and Range of Motion exercises. Please perform ROM (range of motion) exercises at least three times daily: 1. Wrist flexion and extension 2. Finger pump 3. Elbow flexion/extension and forearm rotation 4. Supported Codmans Exercises come out of sling, dangle your affected arm. Use your nonoperative (good) arm to support your operative (getting better!) arm at the elbow. Gently rotate/swing your operative arm in a pendulum motion for 1- 2 minutes. Rest. Repeat three times. Do not reach out to your side (do not rotate your hand laterally NO EXTERNAL ROTATION) PAIN CONTROL: Use frequent ice to reduce amount of pain medications. Use for 30 minutes per hour. Do not leave in place longer than 30 minutes, especially when your block is in effect, to prevent frostbite or thermal injury. MEDICATIONS: 1. Oxycodone (OxyIR) 1-2 tablet(s) orally every 4 hours for pain as needed. Use with Tylenol. Begin tapering OxyIR as soon as possible: reduce from 2 to 1 pills per dose, then spread out the doses over greater time intervals, then try to use only for therapy or for comfort while sleeping. Continue to use regular Tylenol until pain subsides. 2. Tylenol (325mg): 3 tablets every 8 hours orally. Regular dosing of Tylenol is an important part of your baseline pain control. Do not taper Tylenol until you have successfully tapered off of regular OxyIR. Do not take more than 3000mg of Tylenol per day. 3. Zofran 1 tablet orally every 6 hours as needed for nausea related to anesthesia, pain, and narcotic medications OVER THE COUNTER: Narcotics will cause constipation. Colace and or Miralax can help while you are taking oxycodone or other narcotics. 4. Colace (100mg): take 1-2 tabs twice daily to avoid constipation from OxyIR or other narcotics. 5. Miralax 1 tablespoon in a glass of water 2 times daily until normal bowel movements 6. With history of VTE, it is likely best to take daily aspirin. This could be 81 mg twice daily or 325 mg once daily. FOLLOWUP: 1. Ortho Clinic with Dr. Hennessy: You should be seen in 10-14 days. Please call immediately to schedule if you do not have an appointment. 2. PHYSICAL THERAPY: Please arrange to see physical therapy within 1 or 2 weeks. Contact the orthopedic clinic if there are any issues with this. Pending Studies at Discharge: No Stand-Alone Forms: My [facility] [employer], Smoking Cessation Medications and DC Order Prescriptions: New aspirin 81 mg capsule 81 mg PO BID Qty: 60 0RF ondansetron 4 mg tablet,disintegrating 4 mg PO Q6H PRN (Reason: nausea and vomiting) Qty: 10 0RF Continued albuterol sulfate 90 mcg/actuation HFA aerosol inhaler 2 inh inhalation QID PRN (Reason: shortness of breath or wheezing) Qty: 8.5 3RF (DME) Shower Chair Misc See Rx Instructions .Route Qty: 1 0RF Rx Instructions: As directed primidone [Mysoline] 50 mg tablet 100 mg PO BID venlafaxine 75 mg capsule,extended release 24hr 75 mg PO QAM azelastine 0.05 % drops 1 drp ophthalmic (eye) BID PRN (Reason: Eye Irritation) lamotrigine 200 mg tablet 200 mg PO BID venlafaxine 150 mg capsule,extended release 24hr 150 mg PO QAM docusate sodium 50 mg capsule 50 mg PO BID Breztri Aerosphere 160-9-4.8 mcg/actuation HFA aerosol inhaler 2 inh inhalation BID triamterene-hydrochlorothiazid [Maxzide-25mg] 37.5-25 mg tablet 0.5 tab PO QAM montelukast [Singulair] 10 mg tablet 10 mg PO HS lorazepam 1 mg tablet 1 mg PO TID PRN (Reason: Anxiety) levothyroxine 125 mcg tablet 125 mcg PO QAM bupropion HCl [Wellbutrin XL] 300 mg tablet extended release 24 hr 300 mg PO QAM bupropion HCl 150 mg tablet extended release 24 hr 150 mg PO QAM ferrous sulfate [Feosol] 325 mg (65 mg iron) Tablet 325 mg PO QPM pantoprazole 40 mg tablet,delayed release (DR/EC) 40 mg PO QPM albuterol sulfate 2.5 mg /3 mL (0.083 %) solution for nebulization 2.5 mg inhalation Q6H PRN (Reason: shortness of breath or wheezing) Qty: 75 2RF No Action oxycodone 5 mg tablet 5 - 10 mg PO Q6H MDD 6 tablets PRN (Reason: pain) Qty: 20 0RF Rx Instructions: ongoing therapy Discharge Orders: Discharge Order (Routine); Ordered 02/15/25 Ordered By: Raz Hamilton/Other Patient Handouts: Oxycodone Oral Tablet, Ondansetron Disintegrating Oral Tablet Admission Data Admit Date/Time: 02/14/25 13:15 Attending Provider: Raz Hennessy Admit Provider: Raz Hennessy Primary Care Provider: Sheldon Medel Other Providers: [facility] F[facility] Other Interventions: Discharge Summary Assessment (RN) Last Done: 02/15/25 10:52
== END 2025-02-15 14:50 | disposition home or self-care (01) ==
LOC: 3E 07:54 → ASU 07:54
DX: G47.33 Obstructive sleep apnea (adult) (pediatric); Z79.899 Other long term (current) drug therapy; J45.909 Unspecified asthma, uncomplicated; M75.121 Complete rotator cuff tear or rupture of right shoulder, not specified as traumatic; Z79.890 Hormone replacement therapy; Z91.048 Other nonmedicinal substance allergy status; M12.812 Other specific arthropathies, not elsewhere classified, left shoulder; Z88.8 Allergy status to other drugs, medicaments and biological substances